=== PATIENT | male | born 1930 | race Caucasian/White ===

== ENCOUNTER → 2016-12-26 | Outpatient (REF) | payer MEDICARE ==
[~2016-12-26] MED LIST: CENT1TAB PO; COUM2.5T11 PO; FLOM5CAP PO; HYDR25TAB PO; NORV5TAB PO; PROS5TAB PO; TYLE325T5 PO; VOLT1GEL24 TD; ZANTTAB9 PO
[2016-12-26 12:05] LABS: ALBUMIN 3.7 GM/DL (3.2-5.2); ALBUMIN/GLOBULIN RATIO 1.12 (1.00-1.93); BILIRUBIN,TOTAL 0.7 MG/DL (0.2-1.0); CALCIUM LEVEL 9.6 MG/DL (8.8-10.2); CREATININE FOR GFR 1.68 MG/DL (0.70-1.30); GLOMERULAR FILTRATION RATE 41.6 (>35); POTASSIUM SERUM 3.9 MEQ/L (3.5-5.1)
[2016-12-26 12:07] LABS: MEAN CORPUSCULAR HEMOGLOBIN 32.7 pg (27.0-33.0); MEAN CORPUSCULAR HGB CONC 34.2 g/dl (32.0-36.5); MEAN CORPUSCULAR VOLUME 95.8 fl (80.0-96.0); RED CELL DISTRIBUTION WIDTH 12.7 % (11.5-14.5); WHITE BLOOD COUNT 7.1 K/mm3 (4.0-10.0)
== END ==
LOC: M SFHCCLAY 07:01
PROVIDERS: ATTEND Family Medicine
DX: I11.9 Hypertensive heart disease without heart failure (principal); E78.2 Mixed hyperlipidemia; D63.8 Anemia in other chronic diseases classified elsewhere

== ENCOUNTER → 2017-05-02 | Outpatient (REF) | payer MEDICARE ==
[~2017-05-02] MED LIST changes: -COUM2.5T11 PO; +COUM2.5T17 PO; +CYCL10TA PO; +GABA-282 PO; +TRAM50TA2 PO; +VITMTA PO; +VOLT1GEL15 TD; -VOLT1GEL24 TD
[2017-05-02 17:49] LABS: ALBUMIN/GLOBULIN RATIO 1.21 (1.00-1.93); ALKALINE PHOSPHATASE 79 U/L (45-117); ALT/SGPT 25 U/L (12-78); ANION GAP 10 MEQ/L (8-16); AST/SGOT 27 U/L (15-37); BILIRUBIN,TOTAL 0.7 MG/DL (0.2-1.0); BLOOD UREA NITROGEN 28 MG/DL (7-18); CALCIUM LEVEL 10.1 MG/DL (8.8-10.2); CARBON DIOXIDE LEVEL 30 MEQ/L (21-32); CHLORIDE LEVEL 106 MEQ/L (98-107); CREATININE FOR GFR 1.67 MG/DL (0.70-1.30); GLOMERULAR FILTRATION RATE 41.9 (>35); GLUCOSE, FASTING 84 MG/DL (83-110); POTASSIUM SERUM 3.8 MEQ/L (3.5-5.1); SODIUM LEVEL 146 MEQ/L (136-145); TOTAL PROTEIN 7.3 GM/DL (6.4-8.2)
[2017-05-02 17:57] LABS: MEAN CORPUSCULAR HEMOGLOBIN 33.4 pg (27.0-33.0); MEAN CORPUSCULAR HGB CONC 33.8 g/dl (32.0-36.5); MEAN CORPUSCULAR VOLUME 98.7 fl (80.0-96.0); RED CELL DISTRIBUTION WIDTH 12.5 % (11.5-14.5); WHITE BLOOD COUNT 7.7 K/mm3 (4.0-10.0)
[2017-05-03 11:36] LABS: ALBUMIN 4.06 GM/DL (3.29-5.55); ALBUMIN % 55.6 % (55.8-66.1); GAMMA GLOBULIN % 14.2 % (11.1-18.8)
[2017-05-05 00:07] LABS: FREE KAPPA LIGHT CHAINS SERUM 39.8 mg/L (3.3-19.4); FREE LAMBDA LIGHT CHAINS SERUM 27.4 mg/L (5.7-26.3); KAPPA/LAMBDA RATIO SERUM 1.45 (0.26-1.65)
== END ==
LOC: M SFHCADAM 15:07
PROVIDERS: ATTEND Family Medicine
DX: M54.41 Lumbago with sciatica, right side (principal); M51.37 Other intervertebral disc degeneration, lumbosacral region

== ENCOUNTER 2017-05-04 17:17 | Inpatient (IN) | payer MEDICARE ==
[~2017-05-04] VITALS: Ht 172.7 cm; Wt 78.3 kg
[~2017-05-04 17:17] MED LIST changes: -CYCL10TA PO; -GABA-282 PO; -TRAM50TA2 PO; -VITMTA PO
[2017-05-04] MEDS ORDERED: TRAM50TA2 PO (17:39)
[2017-05-04] MEDS ORDERED: CYCL10TA PO (17:40)
[2017-05-04] MEDS ORDERED: traMADol 50 MG TAB PO ONE (20:00)
--- NOTE | 2017-05-04 20:10 | REPUSA ---
HISTORY: BACK PAIN, PARASTHESIAS. TECHNIQUE: Multisequence, multiplanar MRI imaging of lumbosacral spine without contrast. FINDINGS: There is no evidence of fracture, destructive bony lesion, or marrow abnormality seen in t he lumbosacral spine. Conus medullaris is normal and terminates at L1. There is a large cyst in the sacral spinal canal at the S2 level measuring 1.2 x 0.8 cm. The L1/L2 level demonstrates degenerative spondylosis with 2 mm broad-based posterior disc bulging, a nd bilateral facet joint osteoarthritis, without significant canal stenosis or nerve root compression seen. The L2/L3 level demonstrates degenerative spondylosis with 4 mm posterior lateral disc protrusion/spu rring extending to the right side with bilateral facet joint osteoarthritis, resulting in right rut inal stenosis and possible impingement upon the exiting right L2 nerve root, but without significant canal stenosis at this level. This is best seen on the axial sequence, series 6, image 7, and on the stenosis sequence series 4, images 4-5. The L3/L4 level demonstrates degenerative spondylosis with 2 mm broad-based posterior disc bulging/sp urring and bilateral facet joint osteoarthritis and hypertrophy of ligamentum flavum. The resulting in 0.6 cm canal stenosis but without definite impingement seen upon the exiting L3 nerve roots. The L4/L5 level demonstrates 2 mm degenerative spondylolisthesis of L4 anteriorly upon L5 with degene rative spondylosis and disc space narrowing and desiccation of the disc with 2 mm broad-based posteri or disc bulging/spurring with bilateral facet joint osteoarthritis without canal stenosis resulting i n bilateral foraminal stenosis, greater on the left side with possible impingement upon the exiting l eft L4 nerve root, best seen on the axial sequence, series 6, image 17, and on the stenosis sequence series 4, image 10. The L5/S1 level demonstrates degenerative spondylosis with a large 0.8 cm posterior lateral disc her niation to the right side impinging upon the right anterolateral thecal sac at this level, and with b ilateral foraminal stenosis resulting in bilateral foraminal stenosis, but without impingement upon t he exiting right and left L5 nerve roots, but there may be impingement upon the intracanal right S1 n erve root, best seen on the axial sequence, series 6, images 22-25. IMPRESSION: 1. Multilevel degenerative disc disease and facet joint osteoarthritis throughout the e ntire lumbar sacral spine, with large 8 mm disc herniation at L5/S1 extending to the right anterolate ral thecal sac, compressing the thecal sac and resulting in bilateral foraminal stenosis, with possib le impingement upon the intracanal right S1 nerve root. 2. Degenerative spondylolisthesis at L4/L5 with possible impingement upon the exiting left L4 nerve root. 3. The degenerative changes result in 0.6 cm canal stenosis at L3/L4. 4. The degenerative changes result in possible impingement upon the exiting right L2 nerve root. 5. The degenerative changes at L1/L2 do not result in significant canal stenosis or nerve root compr ession. 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 Clinical correlation is suggested in order to localize and determine neurological significance.
[2017-05-04] MEDS ORDERED: ONDANSETRON 4MG/2ML VIAL (J2405) IV PRN (21:30)
[2017-05-04] MEDS ORDERED: MORPHINE 2 MG/ML 1ML SYRINGE IV PRN (21:30)
[2017-05-04] MEDS ORDERED: PERCOCET 5MG/325MG TAB PO PRN ×2 (21:30)
[2017-05-04] MEDS ORDERED: methylPREDNISolone INJ 125 MG/2 ML VIAL (J2930) IV STA (21:47)
[2017-05-04] MEDS ORDERED: VITMTA PO (21:47)
[2017-05-04] MEDS ORDERED: HYDR25TAB PO (21:48)
--- NOTE | 2017-05-04 23:00 | HPE ---
DATE OF ADMISSION: 05/04/2017 PRIMARY CARE PROVIDER: Dr. Gonsales ORTHOPEDIST: Dr. Woody CODE STATUS: Full code. CHIEF COMPLAINT: Worsening low back pain. HISTORY OF PRESENT ILLNESS: 86-year-old gentleman with worsening low back pain for approximately a month to a month and half which has now became more problematic with him being bedridden more less for the past week. He has been to see his primary care provider. He has been to see Dr. Woody and was seen through the area emergency room a few days ago and had been scheduled for an MRI today by Dr. Gonsales. He does continue to have worsening back pain as stated above, difficulty with standing, walking and sitting due to excruciating back pain with radiation down the right leg to behind the knee and calf region. He states his bowel movements have been regular. He denies any difficulty with voiding. No bladder or bowel incontinence. He denies any saddle paresthesias. Mr. Mendoza states that prior to a month ago he was in his usual state of health. He had been able to do most of his yard work. He does have a garden. He had not been having any problems other than some increasing lower back stiffness that he had noted that has become progressively worse. He denies any trauma or recent falls. No fevers, chills. He states he has also been going to physical therapy, which did not seem to help up until about a week ago and then he was unable to tolerate standing or walking as indicated above. He has also currently been placed on Flexeril and Ultram, which he states has not been helping much with pain for the last few days. PAST MEDICAL HISTORY: 1. Benign prostatic hypertrophy (BPH). 2. Hypertension. 3. Gastroesophageal reflux disease (GERD). 4. Low back pain. PAST SURGICAL HISTORY: 1. Gallbladder. 2. Inguinal hernia. 3. Right hip. 4. Cataract surgery. FAMILY HISTORY: Noncontributory. SOCIAL HISTORY: The patient is , lives at home with his . Denies tobacco use, quit smoking 40 years ago. Denies any alcohol use. No recent travel. No sick contacts. No IV drug use. ALLERGIES: TARYN inhibitors and atenolol. HOME MEDICATIONS: - finasteride 5 mg at bedtime . - Flomax 0.4 mg daily - Norvasc 5 mg daily - multivitamin 1 tablet daily - Zantac 75 mg daily - Hydrochlorothiazide 25 mg daily - Tylenol 325 mg every 6 hours as needed - tramadol 50 mg every 6 hours as needed - Flexeril 10 mg three times a day p.r.n. muscle spasm REVIEW OF SYSTEMS: Constitutionally denies fevers, chills or rigors, decreased appetite. HEENT: Denies headache, lightheaded dizziness, blurry vision, double vision or tinnitus. No difficulty with speech or swallow. Pulmonary: Denies productive sputum cough or hemoptysis. Cardiovascular: No chest pain. He denies paroxysmal nocturnal dyspnea (PND), orthopnea. No lower extremity edema. GI: No nausea, vomiting, diarrhea. No hematochezia. No melena. : No dysuria, frequency or hematuria. Musculoskeletal: As indicated above worsening back pain with radiation down his right leg and lower extremity weakness, difficulty with sitting and standing and feels his legs are weak when he walks. He denies any saddle paresthesias. No bladder or bowel incontinence. No signs or complaints consistent with cauda equina. Neurologic: No paresthesias or paralysis. No loss of consciousness. No history of migraines. Endocrine: Negative for diabetes. Negative for thyroid disorder. Lymphatics: No lumps, bumps, swelling of the neck, axilla or groin. No axillary or groin lumps, bumps or swelling. Hematology: Negative for bleeding or bruising disorder. No history of venous thromboembolism. Oncology: No history of cancer. Psychiatric: No history of depression, denies suicidal ideation, audio or visual hallucination. REVIEW OF SYSTEMS: 10-point review of systems complete. Pertinent positives are listed. PHYSICAL EXAMINATION: Temperature is 97.9, pulse 75, respiratory rate 18, BP 148/62, SPO2 is 98% on room air. General: The patient appears to be in no acute distress. Is alert and oriented. HEENT: Unremarkable. Lungs: Clear. Heart: Regular rate and rhythm. Abdomen: Soft. Extremities: He does have palpable pulses distally, does have good sensation in the lower extremities. Straight leg raise positive at approximately 30 degrees on the right with radiation of pain to the anterior thigh and posterior knee. Neurologic: Otherwise cranial nerves II-XII are grossly intact and he does not demonstrate any significant motor or sensory deficits other than some weakness related to back pain with radiation to the right leg when he tries to lift his leg off the bed. LABS: Recent lab work done on 05/02/2017: White count 7.7, hemoglobin 12.2 and platelets 306,000. Sodium 146, potassium 3.8, chloride 106, bicarb 30, anion gap 10, BUN 28, creatinine 1.67, glucose 84. I did see that there was an SPEP done with results relatively unremarkable other than some beta-2 fraction suggesting acute inflammatory issues. Serum and urine immunotyping however was recommended. I will defer this to his primary care team. His MRI of the LS spine done this evening: Multilevel degenerative disc disease with facet joint osteoarthritis throughout the entire lumbar and sacral spine. He does have a large 8-mm disc herniation of L5-S1 extending to the right anterior lateral thecal sac with compression of the thecal sac resulting in bilateral foraminal stenosis with possible impingement upon the intracanal right SI nerve root. He does have spondylolisthesis noted of L4-L5, possible impingement on the exiting of the left L4 nerve root. Canal stenosis noted at the levels of L3-L4. Degenerative changes, possible impingement on the exiting of the right L2 nerve roots. Degenerative changes L1-L2. No significant canal stenosis. No nerve root compression. 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 IMPRESSION: Mr. Mendoza is a pleasant 86-year-old gentleman who unfortunately does have a significant disc herniation of L5-S1, more prominent on the right side with right SI impingement. He does have intractable back pain, unable to ambulate and will need to admit him for better pain control. IMPRESSION: 1. Significant disc herniation at the L5-S1 region with multiple level degenerative disc changes and spondylolisthesis of L4-L5. 2. Acute on chronic back pain. 3. Hypertension. 4. BPH. 5. GERD. PLAN: The patient will be admitted to med-surg per Dr. Gonsaels's family medicine service. Their service will pick this patient up in the morning. I did take the liberty to discuss the case with Dr. Emmanuel, who the patient did request see him while he is in the hospital. Dr. Emmanuel will see him tomorrow morning. In the meantime we did start him with pain control with by mouth Percocet, 1 to 2 tablets every 4 hours as needed, IV morphine for breakthrough pain, gabapentin 100 mg three times a day, Solu-Medrol 125 mg times one now. Continue with his home medications. Physical therapy has been ordered as well as occupational therapy and deep venous thrombosis (DVT) prophylaxis with thromboembolism deterrents (TEDs) and Sequential compression devices (SCDs) should the patient need to go to surgery for this. From a cardiac standpoint, the patient does appear to be doing well. Does not have any significant cardiac issues. Apparently, he prior to all of his back issues had been fairly active at home, able to achieve greater than 4 Metabolic Equivalent of Task (MET)S. Will go ahead and add on a 12-lead EKG in case the patient does need to get his surgery during this hospital stay as well as a portable chest x-ray. Otherwise he does appear to be relatively medically optimized. DVT prophylaxis with LUKAS and SCDs. DISPOSITION: Anticipate the patient will be here greater than two midnights.
[2017-05-04 23:12] VITALS: BP 147/65
--- NOTE | 2017-05-04 23:36 | ECGEPIP ---
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
[2017-05-05] MEDS: ACETAMINOPHEN TAB 650MG DOSE (2X325MG) PO PRN ×2 (02:16→10:03)
[2017-05-05 06:00] VITALS: BP 120/66
[2017-05-05 06:19] LABS: MEAN CORPUSCULAR HGB CONC 34.3 g/dl (32.0-36.5); MEAN CORPUSCULAR VOLUME 96.2 fl (80.0-96.0); RED CELL DISTRIBUTION WIDTH 12.6 % (11.5-14.5); WHITE BLOOD COUNT 4.7 K/mm3 (4.0-10.0)
[2017-05-05 06:38] LABS: CALCIUM LEVEL 9.1 MG/DL (8.8-10.2); CREATININE FOR GFR 1.74 MG/DL (0.70-1.30); POTASSIUM SERUM 3.8 MEQ/L (3.5-5.1)
--- NOTE | 2017-05-05 09:49 | REP ---
AP PORTABLE CHEST: 05/04/2017 COMPARISON: Chest x-ray 07/09/2014. CLINICAL HISTORY: Back pain. FINDINGS: There is linear atelectatic or fibrotic change in the periphery of the left and right mid lung zone. There is no effusion or acute infiltrate. Heart size borderline, allowing for degree of inflation and portable technique. There is no pulmonary edema but some mild venous hypertension is suggested. The aorta is calcified at the arch but without aneurysm. Airway intact. Bony thorax shows no acute compression deformity. IMPRESSION: 1. Basilar linear fibrotic change without definite consolidation, effusion or parenchymal mass. 2. Borderline heart size without pulmonary edema. The aorta is tortuous and calcified but without aneurysm and unchanged from previous study. Signed by Vivek Rankin MD 05/05/2017 10:15 P
[2017-05-05] MEDS: HEPARIN SOD (PORCINE) 5000 UNITS/ML VIAL SQ SCH ×3 (10:01→21:41)
[2017-05-05] MEDS: DOCUSATE SODIUM 100 MG CAP PO SCH ×2 (10:02→21:41)
[2017-05-05] MEDS: GABAPENTIN 100 MG CAP PO SCH ×3 (10:02→21:41)
--- NOTE | 2017-05-05 11:30 | IPNPDOC ---
Subjective Date Seen The patient was seen on 05/05/17. Subjective Chief Complaint/HPI The patient is a 86-year-old male admitted with a reason for visit of Intractable Back Pain. Events since last encounter Pt's son and at bedside. They are anxious about the decision to proceed with the Surgery that NS has recommended to alleviate the pt's pain. He also isn't take much for pain medication. Has had a reaction to morphine in the past with N/V and therefore doesn't want to take that. He took one dose of Tramadol prescribed by Dr Gonsales yesterday, and would be willing to take that. General: Denies: Fatigue Constitutional: Denies: Chills, Fever ENT: Denies: Head Aches Pulmonary: Denies: Dyspnea, Cough Cardiovascular: Denies: Chest Pain, Palpitations Gastrointestinal: Denies: Nausea, Vomiting, Diarrhea Neurological: Reports: Weakness Psych: Reports: Mood Normal Objective Physical Examination General Exam: Positive: Alert, No Acute Distress Chest Exam: Positive: Clear to auscultation, Normal air movement Heart Exam: Positive: Rate Normal, Normal S1, Normal S2 Abdomen Exam: Positive: Normal bowel sounds, Soft, Negative: Tenderness Extremity Exam: Negative: Edema Psych Exam: Positive: Mental status NL Assessment /Plan Problems (1) Lumbar disc herniation with radiculopathy Status: Acute Response to Treatment: Stable Discussed With: Patient, Family with Pt Consent Problem Specific Plan: Consult Specialist, Monitor Clinically Problem Text: NS consulted. They have offered surgical treatment option. Pt agreeable to start Tramadol 50 mg every 6 h as needed for pain. Await decision from pt and family. 05/04 MRI LS: IMPRESSION: 1. 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 2. Degenerative spondylolisthesis at L4/L5 with possible impingement upon the exiting left L4 nerve root. 3. The degenerative changes result in 0.6 cm canal stenosis at L3/L4. 4. The degenerative changes result in possible impingement upon the exiting right L2 nerve root. 5. The degenerative changes at L1/L2 do not result in significant canal stenosis or nerve root compression. 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 (2) Intractable back pain Status: Acute (3) Degenerative disc disease, lumbar Status: Acute (4) CKD (chronic kidney disease), stage III Status: Chronic Response to Treatment: Stable Problem Text: at baseline cr ~1.6 (5) Hypertension Status: Chronic Response to Treatment: Stable Problem Text: Stable off HD amlo 5/HCTZ 25 Plan/VTE VTE Prophylaxis Ordered?: Yes VS, I&O, 24H, Fishbone Vital Signs/I&O Vital Signs Date Time Temp Pulse Resp B/P (MAP) Pulse Ox O2 Delivery O2 Flow Rate FiO2 05/05/17 06:00 99.2 64 16 120/66 (84) 96 Room Air I&O- Last 24 Hours up to 6 AM 05/05/17 06:00 Intake Total 210 ml Output Total 700 ml Balance -490 ml Laboratory Data 24H LABS Laboratory Tests 2 05/05/17 05:46: Anion Gap 10, Glomerular Filtration Rate 40.0, Blood Urea Nitrogen 36H, Creatinine 1.74H, Sodium Level 141, Potassium Level 3.8, Chloride Level 103, Carbon Dioxide Level 28, Calcium Level 9.1 CBC/BMP Laboratory Tests 05/05/17 05:46 Red Blood Count 3.58 L, Mean Corpuscular Volume 96.2 H, Mean Corpuscular Hemoglobin 33.0, Mean Corpuscular Hemoglobin Concent 34.3, Red Cell Distribution Width 12.6, Calcium Level 9.1 NINOSKA GRAYSON PA-C May 05, 2017 11:30 ePte Guerrero M.D. May 05, 2017 16:27
--- NOTE | 2017-05-05 11:41 | REP ---
LUMBAR SPINE, EIGHT VIEWS: HISTORY: None provided. There is no acute fracture. The intervertebral discs are decreased in height consistent with disc degeneration. Osteophytes are present throughout the lumbar spine. There is narrowing of the L3-4 through L5-S1 facet joints with associated sclerosis. There are 7 mm of grade I spondylolisthesis of L4 on L5. This is unchanged with flexion and extension. IMPRESSION: Degenerative change as described above. Signed by Mynor Loya MD 05/05/2017 11:43 A
[2017-05-05] MEDS ORDERED: traMADol 50 MG TAB PO PRN (12:30)
[2017-05-05 14:00] VITALS: BP 139/67
[2017-05-05 21:25] VITALS: BP 145/70
--- NOTE | 2017-05-05 22:20 | CR.PDOC ---
General Date of Consultation: May 05, 2017 Reason for Consultation/CC The patient is a 86-year-old male admitted with a reason for visit of Intractable Back Pain. History of Present Illness NEUROSURGERY I was asked by Dr. York to see this patient in consult today, 05/05/17. HISTORY OF PRESENT ILLNESS: Mr. Mendoza is a pleasant 86 year old gentleman former smoker who was admitted for intractable low back pain. He is accompanied by his and his son, Stoney. He states he does have a history of low back pain however, it became significantly worse within the past week as he has been bedridden. Previously he would hobble around the house, then he began using a cane, and then Monday morning he was unable to walk due to the pain and weakness in his right leg. His low back pain is mainly worse on the right side and has been quickly worsening. The pain is intermittent and worsens with any type of movement or activity. He states while laying in bed currently he does not feel much pain. He describes the pain as dull and with certain movements he will feel a burning sensation travel down the back side of his right leg. Any type of movement will make his pain worse, but specifically standing and walking significantly increase his pain. Laying in bed in supine position helps to alleviate the pain. He has been to PT in the past and reports no improvement in his symptoms. Recently, he said he has been to [facility] and received xrays but then was sent home. He followed up with his PCP who had ordered lumbar MRI and placed a referral to ortho for further evaluation. His son, Stoney, states he and his family would prefer to follow up with ortho. He also reports numbness in his right leg/foot. ALLERGIES: Please see below. HOME MEDICATIONS: Please see below. PAST MEDICAL HISTORY: 1. HTN 2. BPH 3. Low back pain 4. GERD NEUROSURGICAL HISTORY: 1. None 1. R hip, 2013, by Dr. Woody. SOCIAL HISTORY: Marital status: . Household members: . His son, Stoney, lives next door and helps with his care. 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 States he has been active all his life. Has ran many half marathons and a 10 mile run was casual for him in his day. Tobacco use: former smoker, Quit 44 years ago. Smoked about 1 ppd x 20-25 yrs. PHYSICAL EXAMINATION: VITAL SIGNS: Please see below. GENERAL: He is lying comfortably, in NAD. Well nourished and developed. Polite, pleasant, and cooperative during exam. His family helps to provide some of his history, which appears to be reliable. GCS: 15/15. ALert and orientated x3. MUSCLE STRENGTH: is overall 4/5 with hip flexion/extension bilaterally, leg extension bilaterally, knee flexion bilaterally, and plantar and dorsiflexion bilaterally. Straight leg raise on the right is positive, negative on the left. DTR: BR 1 bilaterally, biceps 1 bilaterally, patellar is absent bilaterally, achilles is absent bilaterally. Ankle clonus negative bilaterally. Babinski is downgoing bilaterally. Barbosa's is negative bilaterally. SENSATION: decreased to sharp in right leg over lateral aspect, in patchy areas bilaterally, and in a stocking distribution bilaterally. No significant tenderness with palpation over the lumbar paraspinal muscles or the posterior iliac crest. Tenderness is elicited over the right SI joint. GAIT: assessment deferred. LABORATORY DATA: Please see below. IMAGIN. 05/04/17. MRI lumbar. 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 Degenerative spondylolisthesis at L4/L5 with possible impingement upon the exiting left L4 nerve root. The degenerative changes result in 0.6 cm canal stenosis at L3/L4. The degenerative changes result in possible impingement upon the exiting right L2 nerve root. The degenerative changes at L1/L2 do not result in significant canal stenosis or nerve root compression. 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 . 05/04/17. Xray lumbar. 7 mm of grade I spondylolisthesis of L4 on L5. This is unchanged with flexion and extension. ASSESSMENT: Significant lumbar central spinal canal stenosis worst at L5-S1 with radiculopathy. Neurogenic claudication. PLAN/RECOMMENDATIONS: Patient and his family tell me they have spoke with Dr. York and are aware of his surgical recommendations. They tell me they have no additional questions for Dr. York. They are requesting a second opinion by davin García. I will place this consult to expedite his care given the severity of his symptoms and radiological findings. Thank you for the consultation. Please let us know if there are any additional needs or questions from [facility]. Jessa Clark RPA-Jaime Vital Signs/I&O Vital Signs Date Time Temp Pulse Resp B/P (MAP) Pulse Ox O2 Delivery O2 Flow Rate FiO2 05/05/17 14:00 98.6 83 16 139/67 (91) 93 Room Air I&O- Last 24 Hours up to 6 AM 05/05/17 05:59 Intake Total 30 ml Output Total 500 ml Balance -470 ml Laboratory Data 24H Labs Laboratory Tests 2 05/05/17 05:46: Anion Gap 10, Glomerular Filtration Rate 40.0, Blood Urea Nitrogen 36H, Creatinine 1.74H, Sodium Level 141, Potassium Level 3.8, Chloride Level 103, Carbon Dioxide Level 28, Calcium Level 9.1 CBC/BMP Laboratory Tests 05/05/17 05:46 Red Blood Count 3.58 L, Mean Corpuscular Volume 96.2 H, Mean Corpuscular Hemoglobin 33.0, Mean Corpuscular Hemoglobin Concent 34.3, Red Cell Distribution Width 12.6, Calcium Level 9.1 Allergies Coded Allergies: TARYN Inhibitors (Unverified Adverse Reaction, Intermediate, COUGH, 01/01/13) Atenolol (Unverified Adverse Reaction, Mild, DECREASED HEART RATE, 01/01/13) Home Medications Scheduled Amlodipine Besylate (Norvasc) 5 Mg Tab, 5 MG PO DAILY, (Reported) Finasteride (Proscar) 5 Mg Tab, 5 MG PO QHS, (Reported) Hydrochlorothiazide (Hydrochlorothiazide) 25 Mg Tab, 25 MG PO DAILY, (Reported) Multivitamins *[facility] STOCKED* (Thera M Plus *[facility] STOCKED*) 1 Tab Tab, 1 TAB PO DAILY, (Reported) Ranitidine HCl (Zantac 75) 75 Mg Tab, 75 MG PO DAILY, (Reported) Tamsulosin Hydrochloride (Flomax) 0.4 Mg Cap, 0.4 MG PO QHS, (Reported) Scheduled PRN Acetaminophen (Tylenol) 325 Mg Tab, 325 MG PO Q4HP PRN for PAIN / FEVER, ( Reported) Cyclobenzaprine HCl (Cyclobenzaprine HCl) 10 Mg Tab, 10 MG PO TID PRN for MUSCLE SPASMS, (Reported) Tramadol HCl (Tramadol HCl) 50 Mg Tab, 50 MG PO QID PRN for PAIN, (Reported) LURDES CLARK PA-C May 05, 2017 21:37
[2017-05-06] MEDS ORDERED: CYCLOBENZAPRINE 10 MG TAB PO PRN (01:45)
[2017-05-06] MEDS: FINASTERIDE 5 MG TAB PO SCH ×2 (01:56→17:31)
[2017-05-06] MEDS: TAMSULOSIN 0.4 MG CAP PO SCH ×2 (01:56→17:31)
[2017-05-06] MEDS: HEPARIN SOD (PORCINE) 5000 UNITS/ML VIAL SQ SCH ×3 (05:56→21:13)
[2017-05-06 06:00] VITALS: BP 124/60
[2017-05-06 06:04] LABS: MEAN CORPUSCULAR HEMOGLOBIN 33.1 pg (27.0-33.0); MEAN CORPUSCULAR HGB CONC 34.6 g/dl (32.0-36.5); MEAN CORPUSCULAR VOLUME 95.7 fl (80.0-96.0); RED CELL DISTRIBUTION WIDTH 12.5 % (11.5-14.5); WHITE BLOOD COUNT 18.4 K/mm3 (4.0-10.0)
[2017-05-06 06:21] LABS: CALCIUM LEVEL 9.6 MG/DL (8.8-10.2); CREATININE FOR GFR 1.98 MG/DL (0.70-1.30); GLOMERULAR FILTRATION RATE 34.5 (>35); POTASSIUM SERUM 3.8 MEQ/L (3.5-5.1)
[2017-05-06] MEDS: DOCUSATE SODIUM 100 MG CAP PO SCH ×2 (08:33→21:13)
[2017-05-06] MEDS: hydroCHLOROthiazide 25 MG TAB PO SCH (08:33)
[2017-05-06] MEDS: GABAPENTIN 100 MG CAP PO SCH ×3 (08:33→21:13)
[2017-05-06] MEDS: amLODIPine 5 MG TAB PO SCH (08:34)
[2017-05-06] MEDS: MULTIVITAMINS/MINERALS THERAP 1 TAB PO SCH (08:34)
[2017-05-06 14:00] VITALS: BP 143/69
--- NOTE | 2017-05-06 16:28 | IPNPDOC ---
Subjective Date Seen The patient was seen on 05/06/17. Subjective Chief Complaint/HPI The patient is a 86-year-old male admitted with a reason for visit of Intractable Back Pain. Events since last encounter Patient states his back pain and right lower extremity shooting pain is better today. He states Dr. Emmanuel saw him yesterday and this morning and plans to do an epidural injection. General: Denies: Chills Constitutional: Denies: Chills, Fever ENT: Denies: Head Aches Skin: Denies: Rash Pulmonary: Denies: Dyspnea, Cough Cardiovascular: Denies: Chest Pain, Palpitations Gastrointestinal: Denies: Nausea, Vomiting, Abdominal Pain, Diarrhea Genitourinary: Denies: Retention Musculoskeletal: Reports: Back Pain Neurological: Denies: Weakness, Numbness Psych: Reports: Mood Normal Objective Physical Examination General Exam: Positive: Alert, No Acute Distress Chest Exam: Positive: Clear to auscultation, Normal air movement Heart Exam: Positive: Rate Normal, Normal S1, Normal S2 Abdomen Exam: Positive: Normal bowel sounds, Soft, Negative: Tenderness Extremity Exam: Negative: Edema Psych Exam: Positive: Mental status NL Other physical findings Low backup engineer to palpation; right straight leg raise positive, left straight leg raise negative Assessment /Plan Problems (1) Lumbar disc herniation with radiculopathy Status: Acute Response to Treatment: Stable Discussed With: Patient, Family with Pt Consent Problem Specific Plan: Consult Specialist, Monitor Clinically Problem Text: NS consulted and offered surgical treatment option, which patient declined. He states he was evaluated by Dr. Emmanuel who plans to do an epidural injection - there are no notes available from Dr. Emmanuel to confirm this. The patient's nurse thinks that this is planned for Monday. Pt agreeable to start Tramadol 50 mg every 6 h as needed for pain. 05/04 MRI LS: IMPRESSION: 1. 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 2. Degenerative spondylolisthesis at L4/L5 with possible impingement upon the exiting left L4 nerve root. 3. The degenerative changes result in 0.6 cm canal stenosis at L3/L4. 4. The degenerative changes result in possible impingement upon the exiting right L2 nerve root. 5. The degenerative changes at L1/L2 do not result in significant canal stenosis or nerve root compression. 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 (2) Intractable back pain Status: Acute (3) Degenerative disc disease, lumbar Status: Acute (4) CKD (chronic kidney disease), stage III Status: Chronic Response to Treatment: Stable Problem Text: at baseline cr ~1.6 (5) Hypertension Status: Chronic Response to Treatment: Stable Problem Text: Stable off HD amlo 5/HCTZ 25 Plan/VTE VTE Prophylaxis Ordered?: Yes VS, I&O, 24H, Fishbone Vital Signs/I&O Vital Signs Date Time Temp Pulse Resp B/P (MAP) Pulse Ox O2 Delivery O2 Flow Rate FiO2 05/06/17 14:00 97.9 54 18 143/69 (93) 96 Room Air I&O- Last 24 Hours up to 6 AM 05/06/17 05:59 Intake Total 1260 ml Output Total 440 ml Balance 820 ml Laboratory Data 24H LABS Laboratory Tests 2 05/06/17 05:47: Anion Gap 11, Glomerular Filtration Rate 34.5L, Blood Urea Nitrogen 58#H, Creatinine 1.98H, Sodium Level 144, Potassium Level 3.8, Chloride Level 102, Carbon Dioxide Level 31, Calcium Level 9.6 CBC/BMP Laboratory Tests 05/06/17 05:47 Red Blood Count 3.42 L, Mean Corpuscular Volume 95.7, Mean Corpuscular Hemoglobin 33.1 H, Mean Corpuscular Hemoglobin Concent 34.6, Red Cell Distribution Width 12.5, Calcium Level 9.6 ADILSON MCGOWAN MD May 06, 2017 16:25
[2017-05-06 21:30] VITALS: BP 138/64
[2017-05-07 05:15] VITALS: BP 137/72
[2017-05-07] MEDS: HEPARIN SOD (PORCINE) 5000 UNITS/ML VIAL SQ SCH ×3 (05:54→22:14)
[2017-05-07 06:14] LABS: MEAN CORPUSCULAR HEMOGLOBIN 32.6 pg (27.0-33.0); MEAN CORPUSCULAR HGB CONC 33.7 g/dl (32.0-36.5); MEAN CORPUSCULAR VOLUME 96.9 fl (80.0-96.0); RED CELL DISTRIBUTION WIDTH 12.5 % (11.5-14.5); WHITE BLOOD COUNT 8.9 K/mm3 (4.0-10.0)
[2017-05-07 06:31] LABS: CALCIUM LEVEL 9.7 MG/DL (8.8-10.2); CREATININE FOR GFR 1.68 MG/DL (0.70-1.30); GLOMERULAR FILTRATION RATE 41.6 (>35); POTASSIUM SERUM 3.1 MEQ/L (3.5-5.1)
[2017-05-07] MEDS: MULTIVITAMINS/MINERALS THERAP 1 TAB PO SCH (10:23)
[2017-05-07] MEDS: GABAPENTIN 100 MG CAP PO SCH ×2 (10:23→15:59)
[2017-05-07] MEDS: DOCUSATE SODIUM 100 MG CAP PO SCH ×2 (10:23→20:36)
[2017-05-07] MEDS: hydroCHLOROthiazide 25 MG TAB PO SCH (10:24)
[2017-05-07] MEDS: amLODIPine 5 MG TAB PO SCH (10:25)
[2017-05-07] MEDS: POTASSIUM CHLORIDE 10 MEQ SR TABLET PO SCH ×2 (12:14→20:37)
[2017-05-07 14:00] VITALS: BP 146/67
--- NOTE | 2017-05-07 16:39 | IPNPDOC ---
Subjective Date Seen The patient was seen on 05/07/17. Subjective Chief Complaint/HPI The patient is a 86-year-old male admitted with a reason for visit of Intractable Back Pain. Events since last encounter Patient states pain is much better - however he has mainly been lying in bed and has occasionally been walking upright and has not been sitting at all. He and his family are concerned about whether he will be able to tolerate the 30 [address] car ride home. Constitutional: Denies: Chills, Fever ENT: Denies: Head Aches Pulmonary: Denies: Dyspnea, Cough Cardiovascular: Denies: Chest Pain, Palpitations Gastrointestinal: Denies: Nausea, Vomiting, Abdominal Pain Musculoskeletal: Reports: Back Pain (mild, 2/10) Neurological: Denies: Weakness, Numbness Objective Physical Examination General Exam: Positive: Alert, No Acute Distress Chest Exam: Positive: Clear to auscultation, Normal air movement Heart Exam: Positive: Rate Normal, Normal S1, Normal S2 Abdomen Exam: Positive: Normal bowel sounds, Soft, Negative: Tenderness Extremity Exam: Negative: Edema Psych Exam: Positive: Mental status NL Assessment /Plan Problems (1) Lumbar disc herniation with radiculopathy Status: Acute Response to Treatment: Stable Discussed With: Patient, Family with Pt Consent Problem Specific Plan: Consult Specialist, Monitor Clinically Problem Text: I discussed the case with Dr. Emmanuel this morning; he recommends an epidural injection, which patient also wants. Dr. Emmanuel recommended either Pain consult tomorrow to schedule epidural injection while inpatient, or if patient is able to tolerate discharge home, then discharge home and follow-up with him in the office. I encouraged patient to try to sit today to see if this exacerbates his pain. NS consulted and offered surgical treatment option, which patient declined. Pain managed with Tramadol 50 mg every 6 h as needed for pain. Gabapentin increased on 05/07 from 100 mg TID to 300 mg TID. 05/04 MRI LS: IMPRESSION: 1. 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 2. Degenerative spondylolisthesis at L4/L5 with possible impingement upon the exiting left L4 nerve root. 3. The degenerative changes result in 0.6 cm canal stenosis at L3/L4. 4. The degenerative changes result in possible impingement upon the exiting right L2 nerve root. 5. The degenerative changes at L1/L2 do not result in significant canal stenosis or nerve root compression. 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 (2) Intractable back pain Status: Acute (3) Degenerative disc disease, lumbar Status: Acute (4) CKD (chronic kidney disease), stage III Status: Chronic Response to Treatment: Stable Problem Text: at baseline cr ~1.6 (5) Hypertension Status: Chronic Response to Treatment: Stable Problem Text: Stable off HD amlo 5/HCTZ 25 Plan/VTE VTE Prophylaxis Ordered?: Yes VS, I&O, 24H, Fishbone Vital Signs/I&O Vital Signs Date Time Temp Pulse Resp B/P (MAP) Pulse Ox O2 Delivery O2 Flow Rate FiO2 05/07/17 14:00 99.5 58 16 146/67 (93) 96 Room Air I&O- Last 24 Hours up to 6 AM 05/07/17 06:00 Intake Total 960 ml Output Total 2200 ml Balance -1240 ml Laboratory Data 24H LABS Laboratory Tests 2 05/07/17 05:40: Anion Gap 7L, Glomerular Filtration Rate 41.6, Blood Urea Nitrogen 52H, Creatinine 1.68H, Sodium Level 144, Potassium Level 3.1L, Chloride Level 104, Carbon Dioxide Level 33H, Calcium Level 9.7 CBC/BMP Laboratory Tests 05/07/17 05:40 Calcium Level 9.7 05/07/17 05:41 Red Blood Count 3.29 L, Mean Corpuscular Volume 96.9 H, Mean Corpuscular Hemoglobin 32.6, Mean Corpuscular Hemoglobin Concent 33.7, Red Cell Distribution Width 12.5 ADILSON MCGOWAN MD May 07, 2017 16:39
[2017-05-07] MEDS: FINASTERIDE 5 MG TAB PO SCH (18:12)
[2017-05-07] MEDS: TAMSULOSIN 0.4 MG CAP PO SCH (18:12)
[2017-05-07] MEDS: GABAPENTIN 300 MG CAP PO SCH (20:36)
[2017-05-07 21:45] VITALS: BP 144/68
--- NOTE | 2017-05-07 23:32 | CR ---
DATE OF CONSULTATION: 05/05/2017 REFERRING PHYSICIAN: I had been asked to see the patient by the hospitalist service who requested the consultation. REASON FOR CONSULTATION: I was asked to evaluate intractable back discomfort radiating down the right lower extremity. HISTORY: The patient indicates that he had been having two months of pain. Prior to two months ago he had some back discomfort but not as severe. He had a previous hip replacement on the contralateral side. He has been seen by Dr. Woody of orthopedics in the past, and Dr. Woody had recommended the patient obtain an MRI of his back. His back got to the point where he trouble getting out of bed and when he was about to be brought to the MRI, they were unable to mobilize him, so he was brought in to the emergency room. The pain is better when he is lying down and is much worse when he is standing. When I had seen the patient, he had already received medications per the hospitalist, gabapentin and a steroid. At the time I saw the patient, he noted significant improvement in his symptoms at that point. Describes the pain as burning down the back of the leg and radiating towards the heel of the right foot. The patient has also been seen in consultation by the neurosurgical service at [facility], and the neurosurgical service had recommended what the patient's family described as a long surgical procedure including fusion. Both the patient's daughter and son-in-law in fact had surgery with me in the past, and the family also requested the orthopedic opinion. Family expressed to me that they were very apprehensive about the patient's ability to tolerate long spinal procedure. The patient has not yet had epidural injections. IMAGING: I reviewed imaging that included plain films such as flexion-extension views, as well as the MRI. In my opinion, the flexion/extension views reveal extensive degenerative changes in the lumbar spine while lordosis is preserved. He does have a proximally 7 mm listhesis of 4 on 5. It is not particularly dynamic between flexion and extension. On the MRI, this is also appreciated and there is stenosis at L4-5, L3-4 and L5-S1. The L5-S1 stenosis is secondary to combination of facet arthropathy, ligamentum flavum hypertrophy, as well as a disk bulge producing severe lateral recess stenosis on the right at L5-S1. At L4-5, there is also, in my opinion, right somewhat greater than left lateral recess stenosis though not nearly as severe as at L5-S1. At L3-4, there is significant lumbar spinal stenosis, moderate degree. There is facet arthropathy at multiple lumbar levels. MEDICAL HISTORY: 1. Hypertension. 2. Benign prostatic hypertrophy. 3. Chronic low back pain. 4. Reflux disease. SURGICAL HISTORY: Includes left hip replacement. LABORATORY DATA: Hematocrit 35, creatinine 1.74, blood sugar 190. ALLERGIES: ANGIOTENSION-CONVERTING ENZYME (TARYN) INHIBITORS and ATENOLOL. MEDICATIONS: Include Norvasc, Proscar, hydrochlorothiazide, ranitidine, Flomax, Tylenol, Flexeril, tramadol. CLINICAL EXAMINATION: He is alert and cooperative. He appears to be his stated age of 86. He is not in distress. He was actually able to sit up at the bedside. He was not short of breath. He is able to talk and conversive in complete sentences. The abdomen is soft, nontender. Back is not particularly tender with palpation. The right lower extremity seems to be motor intact. He does appreciate light touch. He is able to sit at the bedside. Trying to sit up seems to produce the pain going down the back of right leg. Comfortable when he is lying down. No peripheral edema today. Relatively healthy skin face, upper and lower extremities without open wounds. IMPRESSION: 1. Right lower extremity radiculopathy. 2. Lumbar spinal stenosis. 3. Non-dynamic spondylolisthesis 4-5. 4. Herniated disk at 5-1 to the right. RECOMMENDATIONS: I had a magali discussion with the family about the pathology involved and different interventions including but not limited to epidural injections, medications such as gabapentin, as well as surgical interventions. The patient, as well as his daughter, expressed apprehension about surgical intervention. They are worried about medical comorbidities associated with that intervention. He is worried specifically that the surgery "might kill him." I think that it is reasonable for the patient to consider nonoperative care. Nonoperative measures may or may not be effective. Specifically, epidurals may gave no relief, may be temporary relief which could be measured in weeks, but if he is korina, could be measured in longer time frames. In terms of surgery, the patient and whichever physician operates, would likely be considering risks, benefits of larger procedures such as decompression and fusion which could address his spondylolisthesis at 4-5 versus surgery such as a less invasive decompression of 5-1, which may improve his right lower extremity radicular symptoms. The patient wants to think about his options and he is advocating at the time I saw him a trial of the epidural injections and medications, especially given his improvement with the oral steroids provided by Dr. Pepper and the gabapentin. I talked with the patient about being seen and evaluated by pain management on Monday for consideration of the epidurals. That is how they want to proceed at this time. For further details, please refer to medical record.
--- NOTE | 2017-05-07 23:37 | IPN ---
DATE OF VISIT: 05/06/2017 BRIEF ROUNDS VISIT: I would agree that the patient had continued to improve compared to the previous day, but was still having some discomfort radiating down the right lower extremity. The patient and his reaffirmed that they intend to pursue with epidural injections prior to surgical intervention. We spent approximately 15 minutes together [id number] time with the patient today.
[2017-05-08 05:35] VITALS: BP 139/68
[2017-05-08] MEDS: HEPARIN SOD (PORCINE) 5000 UNITS/ML VIAL SQ SCH ×3 (05:41→21:50)
[2017-05-08 05:58] LABS: MEAN CORPUSCULAR HEMOGLOBIN 33.1 pg (27.0-33.0); MEAN CORPUSCULAR HGB CONC 34.3 g/dl (32.0-36.5); MEAN CORPUSCULAR VOLUME 96.7 fl (80.0-96.0); WHITE BLOOD COUNT 6.8 K/mm3 (4.0-10.0)
[2017-05-08 06:17] LABS: CALCIUM LEVEL 10.2 MG/DL (8.8-10.2); CREATININE FOR GFR 1.61 MG/DL (0.70-1.30); GLOMERULAR FILTRATION RATE 43.7 (>35); POTASSIUM SERUM 3.9 MEQ/L (3.5-5.1)
[2017-05-08] MEDS: DOCUSATE SODIUM 100 MG CAP PO SCH ×2 (10:22→21:48)
[2017-05-08] MEDS: GABAPENTIN 300 MG CAP PO SCH ×3 (10:23→21:48)
[2017-05-08] MEDS: hydroCHLOROthiazide 25 MG TAB PO SCH (10:24)
[2017-05-08] MEDS: amLODIPine 5 MG TAB PO SCH (10:26)
[2017-05-08] MEDS: POTASSIUM CHLORIDE 10 MEQ SR TABLET PO SCH ×2 (10:26→21:49)
[2017-05-08] MEDS: MULTIVITAMINS/MINERALS THERAP 1 TAB PO SCH (10:27)
--- NOTE | 2017-05-08 11:51 | IPNPDOC ---
Subjective Date Seen The patient was seen on 05/08/17. Subjective Chief Complaint/HPI The patient is a 86-year-old male admitted with a reason for visit of Intractable Back Pain. Events since last encounter Pt states he is better but still having back pain especially when he is sitting for a period of time. Denies CP, SOB, Abd pain. Constitutional: Denies: Chills, Fever Pulmonary: Denies: Dyspnea Cardiovascular: Denies: Chest Pain Gastrointestinal: Denies: Abdominal Pain Objective Physical Examination General Exam: Positive: Alert, No Acute Distress Chest Exam: Positive: Clear to auscultation, Normal air movement Heart Exam: Positive: Rate Normal, Normal S1, Normal S2 Abdomen Exam: Positive: Normal bowel sounds, Soft, Negative: Tenderness Extremity Exam: Negative: Edema Psych Exam: Positive: Mental status NL Assessment /Plan Problems (1) Lumbar disc herniation with radiculopathy Status: Acute Response to Treatment: Stable Discussed With: Patient, Family with Pt Consent Problem Specific Plan: Consult Specialist, Monitor Clinically Problem Text: 05/08 - Pt would like to try the epidurals and he requests inpt pain management consultation vs going home and following up for epidurals as an outpt. I discussed the case with Dr. Emmanuel this morning; he recommends an epidural injection, which patient also wants. Dr. Emmanuel recommended either Pain consult tomorrow to schedule epidural injection while inpatient, or if patient is able to tolerate discharge home, then discharge home and follow-up with him in the office. I encouraged patient to try to sit today to see if this exacerbates his pain. NS consulted and offered surgical treatment option, which patient declined. Pain managed with Tramadol 50 mg every 6 h as needed for pain. Gabapentin increased on 05/07 from 100 mg TID to 300 mg TID. 05/04 MRI LS: IMPRESSION: 1. 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 2. Degenerative spondylolisthesis at L4/L5 with possible impingement upon the exiting left L4 nerve root. 3. The degenerative changes result in 0.6 cm canal stenosis at L3/L4. 4. The degenerative changes result in possible impingement upon the exiting right L2 nerve root. 5. The degenerative changes at L1/L2 do not result in significant canal stenosis or nerve root compression. 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 (2) Intractable back pain Status: Acute Problem Text: See above. (3) Degenerative disc disease, lumbar Status: Acute (4) CKD (chronic kidney disease), stage III Status: Chronic Response to Treatment: Stable Problem Text: at baseline cr ~1.6 (5) Hypertension Status: Chronic Response to Treatment: Stable Problem Text: Stable off HD amlo 5/HCTZ 25 Plan/VTE VTE Prophylaxis Ordered?: Yes VS, I&O, 24H, Fishbone Vital Signs/I&O Vital Signs Date Time Temp Pulse Resp B/P (MAP) Pulse Ox O2 Delivery O2 Flow Rate FiO2 05/08/17 10:26 66 144/66 05/08/17 05:35 98.1 16 97 Room Air I&O- Last 24 Hours up to 6 AM 05/08/17 06:00 Intake Total 920 ml Output Total 1900 ml Balance -980 ml Laboratory Data 24H LABS Laboratory Tests 2 05/08/17 05:26: Anion Gap 7L, Glomerular Filtration Rate 43.7, Blood Urea Nitrogen 38H, Creatinine 1.61H, Sodium Level 147H, Potassium Level 3.9#, Chloride Level 107, Carbon Dioxide Level 33H, Calcium Level 10.2 CBC/BMP Laboratory Tests 05/08/17 05:26 Red Blood Count 3.20 L, Mean Corpuscular Volume 96.7 H, Mean Corpuscular Hemoglobin 33.1 H, Mean Corpuscular Hemoglobin Concent 34.3, Red Cell Distribution Width 13.0, Calcium Level 10.2 Juan Luis Layton RPA-C May 08, 2017 11:51
[2017-05-08 14:00] VITALS: BP 131/62
[2017-05-08] MEDS: TAMSULOSIN 0.4 MG CAP PO SCH (18:32)
[2017-05-08] MEDS: FINASTERIDE 5 MG TAB PO SCH (18:32)
--- NOTE | 2017-05-08 19:16 | CR.PDOC ---
[facility] Pain Clinic Consultation General Date of Consultation: 05/08/17 Consultation Report For: Juan Luis Layton Dajuan RPA-C Chief Complaint The patient is a 86-year-old male admitted with a reason for visit of Intractable Back Pain. History of Present Illness Sharif Ann is a 86-year-old gentleman who was seen today for further evaluation and possible treatment of new onset severe low back and right leg pain. Reports that he has been very active over the last several months including putting a new roof on his house and siding. He began having new pain in his low back with radiation to the right leg in March 2017. He was seen by Dr. Woody at [facility] orthopedics who did recommend physical therapy. He did attend this for 5-6 weeks, but unfortunately had a marked exacerbation of pain in the low back and right leg early April. Pain got so bad within the last week that he was unable to rise from a sitting position or sit in the car. He also began noting numbness into the right leg and particularly across the bottom of the right foot. States he has had no pain in the left leg. He was admitted on 05/05/2017. He was started on IV Solu-Medrol as well as gabapentin. He was given muscle relaxers. He was to be seen by his usual orthopedic group on. He was seen by Dr. Vera from neurosurgery before Dr. Emmanuel was able to see him and the decision was being paid as to whether or not he was to go to surgery. Following his discussion with Dr. Emmanuel decision was made to try more conservative therapy first including injection treatments. States that he is more comfortable today. Pain is located deep within the right buttock. He does continue to have numbness across the sole of the right foot. He has been able to get out of bed and walk with the assistance of a walker. Rates his pain level today as a 4-5/10 if he is sitting still and can spike to a 6-8/10 with movement. Denies any loss of bowel or bladder control. Home Medications Scheduled Amlodipine Besylate (Norvasc) 5 Mg Tab, 5 MG PO DAILY, (Reported) Finasteride (Proscar) 5 Mg Tab, 5 MG PO QHS, (Reported) Hydrochlorothiazide (Hydrochlorothiazide) 25 Mg Tab, 25 MG PO DAILY, (Reported) Multivitamins *[facility] STOCKED* (Thera M Plus *[facility] STOCKED*) 1 Tab Tab, 1 TAB PO DAILY, (Reported) Ranitidine HCl (Zantac 75) 75 Mg Tab, 75 MG PO DAILY, (Reported) Tamsulosin Hydrochloride (Flomax) 0.4 Mg Cap, 0.4 MG PO QHS, (Reported) Scheduled PRN Acetaminophen (Tylenol) 325 Mg Tab, 325 MG PO Q4HP PRN for PAIN / FEVER, ( Reported) Cyclobenzaprine HCl (Cyclobenzaprine HCl) 10 Mg Tab, 10 MG PO TID PRN for MUSCLE SPASMS, (Reported) Tramadol HCl (Tramadol HCl) 50 Mg Tab, 50 MG PO QID PRN for PAIN, (Reported) Allergies Coded Allergies: TARYN Inhibitors (Unverified Adverse Reaction, Intermediate, COUGH, 01/01/13) Atenolol (Unverified Adverse Reaction, Mild, DECREASED HEART RATE, 01/01/13) Past Medical History Medical History General good health. Does have history of gastric reflux. He has been recently constipated secondary to the pain medications. He has a history of benign prostatic hypertrophy. He denies any heart issues or COPD. Social History Social History Denies tobacco, alcohol, or illicit substance abuse. Quit smoking 40 years ago. He lives with his of many years. He is retired continues to lead a very active life Review of Systems Subjective Constitutional: Reports: fatigue, Denies: unexplained weight loss HEENT: Denies: head aches, vision problems, hearing problems Skin: Denies: lesions, rash, breakdown Pulmonary: Denies: cough, dyspnea Cardiovascular: Denies: chest pain, edema, palpitations Gastrointestinal: Reports: constipation (secondary to medications no loss of bowel control) Genitourinary: Reports: other (history of prostatic enlargement with some nocturia. Denies hematuria) Endocrine: Denies: Diabetes mellitus Neurological: Reports: tingling (new onset numbness and tingling sole of left foot) Psych: Reports: mood normal, Denies: thoughts of self harm, thoughts of harming other Physical Examination Physical Examination Vital Signs/I&O Vital Signs Date Time Temp Pulse Resp B/P (MAP) Pulse Ox O2 Delivery O2 Flow Rate FiO2 05/08/17 14:00 98.3 56 18 131/62 (85) 97 Room Air I&O- Last 24 Hours up to 6 AM 05/08/17 06:00 Intake Total 920 ml Output Total 1900 ml Balance -980 ml General Exam: Positive: alert, attentive, talkative, no acute distress, oriented times three Visual Analog Score (VAS): 5 ENT EXAM: Positive: normocephalic Neck Exam: Negative: Lymphadenopathy, Thyromegaly Chest Exam: Positive: Clear to auscultation, Negative: Wheezing, Rales Heart Exam: Positive: Regular rate and rhythm, Normal S1, S2, Negative: Murmurs, Rubs Abdominal Exam: Positive: Normal bowel sounds, Soft, Nondistended Extremity Exam: Negative: Edema Skin Exam: Positive: Warm, Dry, Negative: Rashes, Lesions Neuro Exam: Positive: Other (decreased sensation to light touch only over the sole of the right foot. DTRs 1+ in the bilateral upper and bilateral lower extremities. No clonus. Plantar responses flexor) Inspection of spine Minimal tenderness with palpation over lumbar spinous processes and across the lumbosacral axis. No specific tenderness is elicited with palpation bilaterally at the sacroiliac joints. Musculoskeletal Point tenderness elicited with palpation over the right. Formless to the right trochanter. Muscle strength 5 over 5 distally and proximally in the bilateral upper and lower extremities. Able to rise to a sitting position today. Laboratory Data CBC/BMP Laboratory Tests 05/08/17 05:26 Red Blood Count 3.20 L, Mean Corpuscular Volume 96.7 H, Mean Corpuscular Hemoglobin 33.1 H, Mean Corpuscular Hemoglobin Concent 34.3, Red Cell Distribution Width 13.0, Calcium Level 10.2 Diagnostic and Imaging Studies MRI of the lumbar spine was completed on 05/04/2017. This did demonstrate multilevel degenerative disc disease and facet joint osteoarthritis throughout the entire lumbar sacral spine with a large 8 mm disc herniation at L5-S1 extending to the right. Pressures of the thecal sac and resulting in bilateral foraminal stenosis with possible impingement on the intracanal of the right S1 nerve root. There is degenerative spondylolisthesis at L4-5 with possible impingement on the exiting left L4 nerve root. There are degenerative changes, which resulted in a 0.6 cm canal stenosis at L3-4. Is degenerative changes with possible impingement on the exiting right L2 nerve root. 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 Low back pain. 2. Lumbar disc displacement with radiculopathy. 3. Possible sacroiliitis. 4. Myofascial pain/piriformis syndrome, right side. Recommendation and Plan Options for continued treatment. Discussed with the patient and his . They would like to move forward with interventional therapy. I did review option of lumbar epidural steroid injection. I did also discuss with them that Dr. Anguiano may make a change in the action planned and may move to do something such as a trigger point or sacroiliac joint injection or her piriformis injection depending on where he can locate the pain under fluoroscopy. Would have patient continue with his current medications and physical therapy. Should he remain hospitalized we'll be glad to follow during his hospital stay. Thank you Calin, for allowing us to participate in the care of your patient , Sharif Ann. Should you have any questions we will be glad to discuss this with you at any time please contact us here at the pain center at [phone]. Tahmina John May 08, 2017 19:16
[2017-05-08 22:00] VITALS: BP 150/68
[2017-05-09] VITALS (7 sets, daily range): BP systolic 133–162; BP diastolic 60–76
[2017-05-09] MEDS: HEPARIN SOD (PORCINE) 5000 UNITS/ML VIAL SQ SCH ×3 (06:00→22:12)
[2017-05-09 06:41] LABS: MEAN CORPUSCULAR HGB CONC 33.7 g/dl (32.0-36.5); RED CELL DISTRIBUTION WIDTH 12.7 % (11.5-14.5); WHITE BLOOD COUNT 7.2 K/mm3 (4.0-10.0)
[2017-05-09 06:56] LABS: CREATININE FOR GFR 1.53 MG/DL (0.70-1.30); GLOMERULAR FILTRATION RATE 46.4 (>35); POTASSIUM SERUM 4.1 MEQ/L (3.5-5.1)
[2017-05-09] MEDS: GABAPENTIN 300 MG CAP PO SCH ×3 (08:04→20:57)
[2017-05-09] MEDS: DOCUSATE SODIUM 100 MG CAP PO SCH ×2 (08:05→20:57)
[2017-05-09] MEDS: MULTIVITAMINS/MINERALS THERAP 1 TAB PO SCH (08:05)
[2017-05-09] MEDS: amLODIPine 5 MG TAB PO SCH (08:06)
[2017-05-09] MEDS: hydroCHLOROthiazide 25 MG TAB PO SCH (08:07)
[2017-05-09] MEDS: POTASSIUM CHLORIDE 10 MEQ SR TABLET PO SCH ×2 (09:00→20:57)
[2017-05-09] MEDS ORDERED: oxyCODONE 5MG TAB As Ordered ONE (15:25)
[2017-05-09] MEDS ORDERED: diazePAM 5 MG TAB As Ordered ONE (15:26)
[2017-05-09] MEDS ORDERED: LIDOCAINE 1% SDV INJ 30 ML VIAL As Ordered ONE (15:36)
[2017-05-09] MEDS ORDERED: methylPREDNISolone SUSP 40 MG/ML (DEPO-medrol) VIAL (J1030) As Ordered ONE (15:36)
[2017-05-09] MEDS ORDERED: ISOVUE-M 300 61% 15ML VIAL (Q9967) As Ordered ONE (15:36)
[2017-05-09] MEDS: FINASTERIDE 5 MG TAB PO SCH (18:47)
[2017-05-09] MEDS: TAMSULOSIN 0.4 MG CAP PO SCH (18:47)
--- NOTE | 2017-05-10 01:50 | IPNPDOC ---
Subjective Date Seen The patient was seen on 05/09/17. Subjective Chief Complaint/HPI The patient is a 86-year-old male admitted with a reason for visit of Intractable Back Pain. Events since last encounter Patient plans to have an epidural injection today. Otherwise denies complaints. Constitutional: Denies: Chills, Fever Pulmonary: Denies: Dyspnea, Cough Cardiovascular: Denies: Chest Pain Gastrointestinal: Denies: Nausea, Vomiting, Diarrhea, Constipation Musculoskeletal: Reports: Back Pain, Leg Pain Neurological: Reports: Weakness Objective Physical Examination General Exam: Positive: Alert, No Acute Distress Chest Exam: Positive: Clear to auscultation, Normal air movement Heart Exam: Positive: Rate Normal, Normal S1, Normal S2 Abdomen Exam: Positive: Normal bowel sounds, Soft, Negative: Tenderness Extremity Exam: Negative: Edema Psych Exam: Positive: Mental status NL Assessment /Plan Problems (1) Lumbar disc herniation with radiculopathy Status: Acute Response to Treatment: Stable Discussed With: Patient, Family with Pt Consent Problem Specific Plan: Consult Specialist, Monitor Clinically Problem Text: 05/09 -- plan epidural injection today, likely DC tomorrow 05/08 - Pt would like to try the epidurals and he requests inpt pain management consultation vs going home and following up for epidurals as an outpt. I discussed the case with Dr. Emmanuel this morning; he recommends an epidural injection, which patient also wants. Dr. Emmanuel recommended either Pain consult tomorrow to schedule epidural injection while inpatient, or if patient is able to tolerate discharge home, then discharge home and follow-up with him in the office. I encouraged patient to try to sit today to see if this exacerbates his pain. NS consulted and offered surgical treatment option, which patient declined. Pain managed with Tramadol 50 mg every 6 h as needed for pain. Gabapentin increased on 05/07 from 100 mg TID to 300 mg TID. 05/04 MRI LS: IMPRESSION: 1. 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 2. Degenerative spondylolisthesis at L4/L5 with possible impingement upon the exiting left L4 nerve root. 3. The degenerative changes result in 0.6 cm canal stenosis at L3/L4. 4. The degenerative changes result in possible impingement upon the exiting right L2 nerve root. 5. The degenerative changes at L1/L2 do not result in significant canal stenosis or nerve root compression. 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 (2) Intractable back pain Status: Acute Problem Text: See above. (3) Degenerative disc disease, lumbar Status: Acute (4) CKD (chronic kidney disease), stage III Status: Chronic Response to Treatment: Stable Problem Text: at baseline cr ~1.6 (5) Hypertension Status: Chronic Response to Treatment: Stable Problem Text: Stable off HD amlo 5/HCTZ 25 Plan/VTE VTE Prophylaxis Ordered?: Yes VS, I&O, 24H, Fishbone Vital Signs/I&O Vital Signs Date Time Temp Pulse Resp B/P (MAP) Pulse Ox O2 Delivery O2 Flow Rate FiO2 05/09/17 22:00 98.7 74 20 133/71 (91) 94 05/09/17 21:01 Room Air I&O- Last 24 Hours up to 6 AM 05/10/17 05:59 Intake Total 680 ml Output Total 2200 ml Balance -1520 ml Laboratory Data 24H LABS Laboratory Tests 2 05/09/17 06:23: Anion Gap 7L, Glomerular Filtration Rate 46.4, Blood Urea Nitrogen 30H, Creatinine 1.53H, Sodium Level 145, Potassium Level 4.1, Chloride Level 107, Carbon Dioxide Level 31, Calcium Level 10.0 CBC/BMP Laboratory Tests 05/09/17 06:23 Red Blood Count 3.28 L, Mean Corpuscular Volume 98.0 H, Mean Corpuscular Hemoglobin 33.0, Mean Corpuscular Hemoglobin Concent 33.7, Red Cell Distribution Width 12.7, Calcium Level 10.0 LUCAS DORANTES DO May 10, 2017 01:50
[2017-05-10 02:00] VITALS: BP 132/74
[2017-05-10 06:00] VITALS: BP 128/70
[2017-05-10] MEDS: HEPARIN SOD (PORCINE) 5000 UNITS/ML VIAL SQ SCH (06:32)
[2017-05-10 07:00] LABS: MEAN CORPUSCULAR HEMOGLOBIN 32.6 pg (27.0-33.0); MEAN CORPUSCULAR HGB CONC 33.5 g/dl (32.0-36.5); MEAN CORPUSCULAR VOLUME 97.3 fl (80.0-96.0); RED CELL DISTRIBUTION WIDTH 12.4 % (11.5-14.5); WHITE BLOOD COUNT 12.2 K/mm3 (4.0-10.0)
[2017-05-10 07:11] LABS: CALCIUM LEVEL 9.7 MG/DL (8.8-10.2); CREATININE FOR GFR 1.6 MG/DL (0.70-1.30); GLOMERULAR FILTRATION RATE 44.1 (>35); POTASSIUM SERUM 4.7 MEQ/L (3.5-5.1)
[2017-05-10] MEDS: DOCUSATE SODIUM 100 MG CAP PO SCH (08:56)
[2017-05-10] MEDS: MULTIVITAMINS/MINERALS THERAP 1 TAB PO SCH (08:56)
[2017-05-10] MEDS: POTASSIUM CHLORIDE 10 MEQ SR TABLET PO SCH (08:56)
[2017-05-10] MEDS: GABAPENTIN 300 MG CAP PO SCH (08:56)
[2017-05-10 08:57] VITALS: BP 128/70
[2017-05-10] MEDS: amLODIPine 5 MG TAB PO SCH (08:57)
[2017-05-10] MEDS: hydroCHLOROthiazide 25 MG TAB PO SCH (08:57)
[2017-05-10 10:00] VITALS: BP 146/71
[2017-05-10] MEDS ORDERED: GABA-282 PO (10:24)
--- NOTE | 2017-05-10 11:00 | DSES ---
DATE OF ADMISSION: 05/04/2017 DATE OF DISCHARGE: 05/10/2017 PRIMARY CARE PROVIDER: Dr. Andreas Gonsales ATTENDING PHYSICIAN: Brandi Dozier DO CONSULTANTS: Dr. Jeff Emmanuel and Cathleen John NP from pain management. HISTORY OF PRESENT ILLNESS: Sharif Mendoza is an 86-year-old male patient who follows with Dr. Gonsales, who presented to the emergency room with intractable back pain. The patient had an MRI of lumbosacral spine that showed multi level degenerative disc disease with facet osteoarthritis throughout the entire lumbar and sacral spine. Large 8 mm disc herniation of L5-S1 extending to the right anterolateral thecal sac with compression of the thecal sac resulting in bilateral foraminal stenosis with possible impingement upon the intra canal right S1 nerve roots. Spondylolisthesis noted at L4-5 with possible impingement on the exiting L4 nerve root. Canal stenosis L3-4. Degenerative changes and possible impingement on the right L2 nerve root. Degenerative changes L1-2. Tarlov cyst in the sacral spine noted. The patient was admitted for further evaluation and treatment. The patient was seen by Dr. York, neurosurgeon, who discussed surgical options. The patient was also seen by Dr. Emmanuel from orthopedics. The patient was not interested in having surgery, and Dr. Emmanuel agreed with consideration of nonoperative measures and suggested epidurals. Dr. Emmanuel talked about having the patient follow up with him in the office versus inpatient pain management referral for epidural injections. The patient did elect to have pain management see him in the hospital and initiate epidural injections. The patient did receive the epidural injections after seeing pain management and noted significant improvement in the symptoms. Physical therapy did advise continued use of rolling walker, which the patient states he does have at home. During the course of the patient's hospitalization, he was started on gabapentin and will be discharged home on that. His naproxen was stopped during the course of hospitalization. The patient wishes to follow up with pain management and Dr. Emmanuel upon followup as an outpatient. The patient was continued on his regular medications, including his Norvasc and hydrochlorothiazide for hypertension. By day of discharge, the patient states his pain was significantly improved. He worked with physical therapy and did well. PHYSICAL EXAMINATION VITAL SIGNS: Temperature 98.0, pulse 64, respiratory rate 20, blood pressure is 128/70, pulse oximetry 96%. GENERAL: The patient is alert, no acute distress. No respiratory distress. CHEST: Clear to auscultation bilaterally. HEART: Regular rate and rhythm. ABDOMEN: Positive bowel sounds, soft, nontender. EXTREMITIES: No clubbing, cyanosis or edema. NEUROLOGIC: Nonfocal grossly. LABORATORY DATA: WBC 12.2, hemoglobin 11.8, hematocrit 35.1, platelets 307. Sodium 142, potassium 4.7, chloride 106, carbon dioxide 28, BUN 35, creatinine 1.60, glucose 188, calcium 9.7. MEDICATIONS: - gabapentin 300 mg by mouth three times a day - acetaminophen 325 mg by mouth every four hours as needed for pain or fever - amlodipine 5 mg by mouth daily - cyclobenzaprine 10 mg by mouth three times a day as needed for spasm - Proscar 5 mg by mouth daily - hydrochlorothiazide 25 mg by mouth daily - multivitamin by mouth daily - ranitidine 75 mg by mouth daily - Flomax 0.4 mg by mouth daily - tramadol 50 mg by mouth four times a day as needed for pain DISCHARGE INSTRUCTIONS: Followup with Dr. Gonsales in 1 week. Followup with pain management per their instructions. Followup with Dr. Emmanuel in a week. Diet is no added salt. Activity as tolerated. DISCHARGE DIAGNOSES: 1. Lumbar disc herniation with radiculopathy. 2. Intractable back pain. 3. Degenerative disc disease, lumbar. 4. Chronic kidney disease stage III. 5. Hypertension. [facility]
--- NOTE | 2017-05-10 17:09 | REP ---
FLUORO GUIDANCE: The images were reviewed with Dr. Cordova. The patient has a history of low back pain. The portable C-Arm is provided in the OR for Dr. Silva for fluoroscopic guidance. Three intraoperative fluoroscopic spot films were obtained for needle placement verification for lumbar epidural injection. The films are on the PACs system and are available for review. 12 seconds of fluoroscopy time was utilized for this procedure. Reviewed by CARO Bustos 05/11/2017 05:29 PEdited and Signed by Raad Cordova MD 05/12/2017 04:56 P
== END 2017-05-10 11:27 | disposition home or self-care (01) | DRG 552 ==
LOC: M ED 17:17 → M ED INP 21:29 → M MSPAV 23:12
PROVIDERS: ADMIT Hospitalist; ATTEND Family Medicine
PROC: 3E0R3GC Introduction of Other Therapeutic Substance into Spinal Canal, Percutaneous Approach (ICD-10-PCS; principal; 2017-05-09)
DX: M51.27 Other intervertebral disc displacement, lumbosacral region (principal); M51.37 Other intervertebral disc degeneration, lumbosacral region; Z79.899 Other long term (current) drug therapy; M47.816 Spondylosis without myelopathy or radiculopathy, lumbar region; N18.3 Chronic kidney disease, stage 3 (moderate); I12.9 Hypertensive chronic kidney disease with stage 1 through stage 4 chronic kidney disease, or unspecified chronic kidney disease; N40.0 Benign prostatic hyperplasia without lower urinary tract symptoms; K21.9 Gastro-esophageal reflux disease without esophagitis; Z88.8 Allergy status to other drugs, medicaments and biological substances; Z96.642 Presence of left artificial hip joint; M79.1 Myalgia

== ENCOUNTER → 2017-05-16 | Outpatient (CLI) | payer MEDICARE ==
[~2017-05-16] MED LIST changes: +CYCL10TA PO; +GABA-282 PO; +TRAM50TA2 PO; +VITMTA PO
--- NOTE | 2017-05-16 13:43 | REP ---
Duplex extremity venous ultrasound: Left lower extremity. History: Left calf pain question DVT. Findings: The deep veins are anechoic and fully compressible from the groin to the popliteal fossa in the left lower extremity. Color flow imaging is homogeneous. Spectral Doppler interrogation demonstrates intact respiratory variation in flow and normal manual augmentation of flow. There is no evidence of deep vein thrombosis. Scanning over the posterior medial popliteal fossa demonstrates a complex fluid collection extending into the calf measuring 7.3 by 2.5 x 4.1 cm. This may be a Sy's cyst. It contains a few septations. 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 Otherwise negative left lower extremity duplex venous ultrasound. No evidence of deep vein thrombosis. Signed by Delroy Bowen MD 05/16/2017 01:35 P
== END ==
LOC: M RAD 12:55
PROVIDERS: ATTEND Physician Assistant
DX: M79.662 Pain in left lower leg (principal)
CPT/HCPCS: 93971; G0463

== ENCOUNTER → 2017-06-12 | Outpatient (CLI) | payer MEDICARE ==
--- NOTE | 2017-06-28 01:41 | ECWPNPC ---
PATIENT NAME: SHREYAS AMBROCIO : 1930 GENDER: MALE VISIT DATE: 06/12/2017 DISCHARGE DATE: 06/12/17 1141 VISIT LOCKED DATE TIME: PHYSICIAN: SHIVANI VASQUEZ PHYSICIAN PAGER NO: [phone] RESOURCE: SHIVANI VASQUEZ REASON FOR APPOINTMENT 1. BACK PAIN HISTORY OF PRESENT ILLNESS FALL RISK SCREENING: SCREENING :NO FALLS IN THE PAST YEAR PAIN SCREENING: PATIENT HAS A COMPLAINT OF ACUTE OR CHRONIC PAIN :YES TODAY'S VISIT: NOTES: PT REFERRED BY ISABELLA BEAR FOR FOLLOWUP CARE FOR LOW BACK PAIN. HAD LESB DURING INPATIENT STAY ON 05/09/17. REPORTS PAIN LEVEL PRIOR TO INJECTION WAS 3/10 AND POST INJECTION WAS 2/10. STILL HAVING N/T INTO LEFT LEG TO THE FOOT. THIS IS MARGINALLY BETTER. PAIN IS LESS IN THE BACK AND BUTTUCK. SOME SHARP DISC WITH LIFTING LEG FOR STEPS OR THE CAR. SLEEP IS WITHOUT DIFF. NO PAIN WHEN LAYING DOWN. . CURRENT MEDICATIONS TAKING SYSTANE 0.4-0.3 % SOLUTION 1 DROP INTO BOTH EYES OPHTHALMIC USE NEEDED TAKING MULTIVITAMINS OTC TABLET 1 TABLET ORALLY ONCE A DAY TAKING NORVASC 5MG TABLET 1 TABLET ORALLY ONCE A DAY TAKING HYDROCHLOROTHIAZIDE 25 25 MG TABLET 1 TABLET ORALLY ONCE A DAY TAKING FLOMAX 0.4 MG CAPSULE EXTENDED RELEASE 24 HOUR 1 CAPSULE 30 MINUTES AFTER THE SAME MEAL EACH DAY ORALLY ONCE A DAY TAKING PROSCAR 5 MG TABLET 1 TABLET ORALLY ONCE A DAY TAKING TRAMADOL HCL 50 MG TABLET 1 TABLET NEEDED ORALLY FOUR TIMES DAILY NEEDED TAKING GABAPENTIN 300 MG CAPSULE 1 CAPSULE ORALLY THREE TIMES A DAY, NOTES: ONLY TAKING IT TWICE A DAY TAKING COLACE 100 MG CAPSULE 1 CAPSULE NEEDED ORALLY ONCE A DAY NOT-TAKING ZANTAC 75 OTC TABLET 1 TABLET ORALLY ONCE A DAY NOT-TAKING CYCLOBENZAPRINE HCL 10 MG TABLET 1 TABLET NEEDED ORALLY THREE TIMES A DAY MEDICATION LIST REVIEWED AND RECONCILED WITH THE PATIENT PAST MEDICAL HISTORY HYPERTENSION ESOPHAGEAL REFLUX BPH LVH HYPERCHOLESTEROLEMIA CHOLANGITIS S/P ERCP/ STENT CAL[place]TO 07/08 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 ANEMIA OF CHRONIC DISEASE 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 ( WKUP DONE) BACK PAIN - CHRONIC CKD3-- GFR 40 NST 05/15: NL PERFUSION, EF 40% AT REST, 44% WITH ACTIVITY--[facility] ECHO 05/15: LAE 46 MM, EF 60%-- [facility] ALLERGIES ATENOLOL: DECREASED HEARTRATE: SIDE EFFECTS TARYN INHIBITORS: COUGH: SIDE EFFECTS SURGICAL HISTORY LEFT DIRECT HERNIA REPAIR TRUS BIOPSY CHOLECYSTECTOMY AND COMMON BILE DUCT STONE REMOVAL THROUGH ERCP 04/01 COLONOSCOPY--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 OLDEST SON-HEART ISSUES. SOCIAL HISTORY GENERAL: TOBACCO USE ARE YOU A:FORMER SMOKER HOW LONG HAS IT BEEN SINCE YOU LAST SMOKED?> 10 YEARS LUNG CANCER SCREENING SMOKING STATUS:FORMER SMOKER ALCOHOL SCREENING POINTS0 INTERPRETATIONNEGATIVE RECREATIONAL DRUG USE DRUG USE?NO CAFFEINE CAFFEINE USE?YES OCCUPATION: RETIRED. DIET: LOW FAT, LOW CHOLESTEROL, NO ADDED SALT, NO CONCENTRATED SWEETS.. EXERCISE: ELLIPTICAL,RESISTANCE TRAINING 3X WEEKLY. MARITAL STATUS: --MARTINEZ /1951 . OTHERS AT HOME: SPOUSE. PETS: NONE. JEWISH NO MOSQUE BELIEFS THAT WOULD IMPACT HEALTH CARE. LANGUAGE LANGUAGES SPOKEN:YAKUT LEARNING BARRIERS / SPECIAL NEEDS BARRIERS TO LEARNING?NO HEARING IMPAIRED?NO VISION IMPAIRED?YES :CORRECTIVE LENSES COGNITIVELY IMPAIRED?NO READINESS TO LEARN?YES LEARNING PREFERENCES?NO LEARNING CAPABILITIES PRESENT?YES EMOTIONAL BARRIERS?NO SPECIAL DEVICES?YES :PEDRO MACK INCIDENT RESPONSE LEAD NEEDED?NO ADVANCE DIRECTIVES HEALTH CARE PROXY?YES NAME OF HCP MARTINEZ AMBROCIO DO YOU HAVE A DNR?NO WOULD YOU LIKE MORE INFORMATION?NO LIVING WILL?YES POWER OF BELT CHANGER?YES NAME OF POA? -MARTINEZ AMBROCIO RETIRED: YES--[employer]// RETIRED 1994. HOSPITALIZATION/MAJOR DIAGNOSTIC PROCEDURE BACK PAIN RADIATING DOWN RIGHT LEG 05/18 REVIEW OF SYSTEMS REVIEWED BY: PROVIDER: SHIVANI CORMIER . CONSTITUTIONAL: ANY CHANGE IN YOUR MEDICAL CONDITION? NO . CHILLS NO . FEVER NO . INFECTION: DO YOU HAVE NEW INFECTIONS? NO . DO YOU HAVE HISTORY OF MRSA? NO . MUSCULOSKELETAL: ANY NEW PATTERNS OF PAIN OR NUMBNESS? NO . SYTEMIC LUPUS NO . GASTROENTEROLOGY: ANY NEW CHANGE IN BOWEL CONTROL? NO . BARRETTS ESOPHAGUS NO . CIRRHOSIS NO . HEPATITIS NO . LIVER FAILURE NO . ACID REFLUX YES - IMPROVED WITH TUMS . UNEXPLAINED WEIGHT LOSS NO . GENITOURINARY: ANY NEW CHANGE IN BLADDER CONTROL? NO . IS THERE A CHANCE YOU COULD BE ? NO . HEMATOLOGY/LYMPH: DO YOU TAKE ANY BLOOD THINNERS? (FOR EXAMPLE- COUMADIN, PLAVIX, AGGRENOX, PLATEL, PRADAXA, OR XARELTO) NO . WHEN WAS YOUR LAST DOSE? DATE: TIME: . LOW PLATELET COUNT NO . SICKLE CELL DISEASE NO . VON WILLIEBRANDS NO . FACTOR V LEIDEN NO . THALLASEMIA NO . ANEMIA NO . EASY BRUISING NO . NEUROLOGY: HAVE YOU FALLEN IN THE PAST 6 MONTHS? NO . ANY NEW EXTREMITY NUMBNESS OR WEAKNESS? NO . HEAD INJURY NO . DEMENTIA NO . CEREBRAL PALSY NO . MULTIPLE SCLEROSIS NO . DIZZINESS NO . HEADACHE NO . STROKES NO . VERTIGO NO . CARDIOLOGY: DO YOU HAVE A PACEMAKER OR DEFIBRILLATOR? NO . ANGINA NO . HEART ATTACK NO . HEART SURGERY NO . CONGESTIVE HEART FAILURE/FLUID OVERLOAD NO . CHEST PAIN NO . HIGH BLOOD PRESSURE ON MEDICATION(S) . IRREGULAR HEART BEAT NO . RESPIRATORY: HAVE YOU BEEN SICK IN THE PAST WEEK? NO . FEVER NO . FLU LIKE SYMPTOMS? NO . CPAP NO . BYPAP NO . ASTHMA NO . EMPHYSEMA NO . CHRONIC LUNG DISEASES NO . SHORTNESS OF BREATH ON EXERTION NO . COUGH NO . SNORING NO . INTEGUMENTARY: DO YOU HAVE ANY RASHES OR OPEN SORES? NO . ALLERGIC/IMMUNO: ARE YOU ALLERGIC TO SHELLFISH OR IV DYE? NO . ANY NEW ALLERGIES? NO . PSYCHIATRIC: DO YOU HAVE THOUGHTS OF HURTING YOURSELF OR SOMEONE ELSE? NO . ARE YOU ABUSED, NEGLECTED, OR IN AN UNSAFE ENVIRONMENT? NO . ENDOCRINOLOGY: ARE YOU DIABETIC? NO . THYROID DISORDER NO . OTHER: DO YOU NEED ANY PRESCRIPTIONS? NO . IF YES, PLEASE LIST: ____ . ANY NEW PROBLEMS WITH YOUR MEDICATIONS? NO . WHEN DID YOU LAST EAT? ____ . WHEN DID YOU LAST DRINK? ____ . WHAT DID YOU LAST DRINK? ____ . NAME OF PERSON DRIVING YOU HOME? ____ . DO YOU HAVE ANY OTHER QUESTIONS OR CONCERNS NO . VITAL SIGNS WT 172 LBS, HT 75 IN, BMI 21.50 INDEX, BP 149/67 MM HG, HR 82 /MIN, RR 16 /MIN, TEMP 98.7 F, OXYGEN SAT % 94, REVIEWED BY: EM. EXAMINATION GENERAL EXAMINATION: PSYCHALERT , ORIENTED X 3 , APPROPRIATE MOOD AND AFFECT . HEENT:NORMOCEPHALIC, NO LYMPHADENOPATHY, NO THYROMEGLY. LUNGS:CLEAR TO AUSCULTATION BILATERALLY, NO WHEEZES, RALES OR RHONCHI. HEART:HEART RATE REGULAR, NO CAROTID BRUITS. MUSCULOSKELETAL:MUSCLE STRENGTH TESTING 5/5 LEFT LOWER EXTREMITY, 5-/5 RIGHT LOWER EXTREMITIY. TENDER WITH PALPATION OVER LUMBAR SPINOUS PROCESSES AND AT RIGHT SACRAL ILIAC JOINT. EXTREMITIES:TRACE EDEMA BILATERAL LOWER EXTREMITIES. NEUROLOGIC EXAM:CN'S II-XII GROSSLY INTACT. DTR'S TRACE TO ABSENT RIGHT LOWER EXTREMITY, 2+ LEFT LOWER EXTREMITY. DECREASED SENSATION TO LIGHT TOUCH RIGHT LOWER EXTREMITY OVER ANTERIOR AND LATERAL THIGH, LATERAL CALF AND FOOT.. 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 LISTEN TO YOUR BODY. CALL IF PAIN RETURNS. USE TYLENOL NEEDED FOR PAIN. PROCEDURE CODES FA211 ESTABILISHED PATIENT [facility] FACILITY CHARGE G8783 BP SCR PRFRM RCMDD DEFIND SCR INTVL G8730 PAIN ASSESS POS TOOL F/U PLAN DOC 3016F PT SCRND UNHLTHY OH USE 1124F ACP DISCUSS-NO DSCNMKR DOCD 1036F TOBACCO NON-USER G8427 DOC MEDS VERIFIED W/PT OR RE G8420 BMI<30 AND >=22 CALC & DOCU 3288F FALL RISK ASSESSMENT DOCD DISPOSITION & COMMUNICATION FOLLOW UP 3 MONTHS (REASON: BACK PAIN ) ELECTRONICALLY SIGNED BY RUFINA GARCIA ON 06/27/2017 AT 07:27 PM EDT DISCLAIMER : THIS IS A VISIT SUMMARY EXTRACTED FROM THE [employer] CHART. IT IS NOT A COPY OF THE [employer] PROGRESS NOTE. RODRIGO
== END ==
LOC: M PAIN 11:00
PROVIDERS: ATTEND Nurse Practitioner Family
DX: G89.29 Other chronic pain (principal); M51.16 Intervertebral disc disorders with radiculopathy, lumbar region; E78.2 Mixed hyperlipidemia; K21.9 Gastro-esophageal reflux disease without esophagitis; E55.9 Vitamin D deficiency, unspecified; I10 Essential (primary) hypertension; Z88.8 Allergy status to other drugs, medicaments and biological substances; Z79.899 Other long term (current) drug therapy; Z87.891 Personal history of nicotine dependence

== ENCOUNTER → 2017-09-11 | Outpatient (CLI) | payer MEDICARE | LOC: M PAIN 11:00 | DX: M51.16 Intervertebral disc disorders with radiculopathy, lumbar region (principal); I12.9 Hypertensive chronic kidney disease with stage 1 through stage 4 chronic kidney disease, or unspecified chronic kidney disease; N40.0 Benign prostatic hyperplasia without lower urinary tract symptoms; N18.3 Chronic kidney disease, stage 3 (moderate); Z79.899 Other long term (current) drug therapy; Z87.891 Personal history of nicotine dependence; Z88.8 Allergy status to other drugs, medicaments and biological substances | CPT/HCPCS: G0463 ==

== ENCOUNTER → 2017-10-23 | Outpatient (REF) | payer MEDICARE ==
[2017-10-23 13:39] LABS: ANION GAP 8 MEQ/L (8-16); BLOOD UREA NITROGEN 27 MG/DL (7-18); CALCIUM LEVEL 9.2 MG/DL (8.8-10.2); CARBON DIOXIDE LEVEL 32 MEQ/L (21-32); CHLORIDE LEVEL 104 MEQ/L (98-107); CREATININE FOR GFR 1.65 MG/DL (0.70-1.30); GLOMERULAR FILTRATION RATE 42.4 (>35); GLUCOSE, FASTING 148 MG/DL (70-100); MAGNESIUM LEVEL 2.2 MG/DL (1.8-2.4); POTASSIUM SERUM 3.8 MEQ/L (3.5-5.1); SODIUM LEVEL 144 MEQ/L (136-145)
== END ==
LOC: M SFHCADAM 09:37
DX: E87.6 Hypokalemia (principal)
CPT/HCPCS: 83735

== ENCOUNTER → 2017-12-18 | Outpatient (REF) | payer MEDICARE ==
[2017-12-18 11:26] LABS: HEMATOCRIT 33.2 % (42.0-52.0); HEMOGLOBIN 10.9 g/dl (14.0-18.0); MEAN CORPUSCULAR HEMOGLOBIN 31.2 pg (27.0-33.0); MEAN CORPUSCULAR HGB CONC 32.8 g/dl (32.0-36.5); MEAN CORPUSCULAR VOLUME 95.1 fl (80.0-96.0); PLATELET COUNT, AUTOMATED 344 10^3/uL (150-450); RED BLOOD COUNT 3.49 10^6/uL (4.30-6.10); RED CELL DISTRIBUTION WIDTH 12.4 % (11.5-14.5); WHITE BLOOD COUNT 8.1 10^3/uL (4.0-10.0)
[2017-12-18 11:41] LABS: ALBUMIN 3.6 GM/DL (3.2-5.2); ALBUMIN/GLOBULIN RATIO 1.03 (1.00-1.93); ALKALINE PHOSPHATASE 92 U/L (45-117); ALT/SGPT 19 U/L (12-78); ANION GAP 8 MEQ/L (8-16); AST/SGOT 20 U/L (7-37); BILIRUBIN,TOTAL 0.5 MG/DL (0.2-1.0); BLOOD UREA NITROGEN 31 MG/DL (7-18); CALCIUM LEVEL 9.5 MG/DL (8.8-10.2); CARBON DIOXIDE LEVEL 30 MEQ/L (21-32); CHLORIDE LEVEL 106 MEQ/L (98-107); CHOLESTEROL LEVEL 170 MG/DL (<200); CHOLESTEROL RISK RATIO 2.833 (<5); CREATININE FOR GFR 1.58 MG/DL (0.70-1.30); GLOMERULAR FILTRATION RATE 44.6 (>35); GLUCOSE, FASTING 96 MG/DL (70-100); HDL CHOLESTEROL 60 MG/DL (>40); LDL CHOLESTEROL 94.6 MG/DL (<100); NON-HDL-C 110 MG/DL; POTASSIUM SERUM 3.7 MEQ/L (3.5-5.1); SODIUM LEVEL 144 MEQ/L (136-145); TOTAL PROTEIN 7.1 GM/DL (6.4-8.2); TRIGLYCERIDES LEVEL 77 MG/DL (<150)
[2017-12-18 11:45] LABS: TOTAL 25(OH) VITAMIN D 41.9 NG/ML (30.0-100.0)
== END ==
LOC: M SFHCCLAY 08:08
DX: N18.3 Chronic kidney disease, stage 3 (moderate) (principal); D63.8 Anemia in other chronic diseases classified elsewhere; I11.9 Hypertensive heart disease without heart failure; E78.2 Mixed hyperlipidemia; E55.9 Vitamin D deficiency, unspecified
CPT/HCPCS: 80053

== ENCOUNTER → 2018-06-13 | Outpatient (CLI) | payer MEDICARE | LOC: M RAD 09:56 | DX: M48.061 Spinal stenosis, lumbar region without neurogenic claudication (principal) | CPT/HCPCS: 72148 ==

== ENCOUNTER 2019-04-06 10:51 | Emergency (ER) | payer MEDICARE ==
[~2019-04-06] VITALS: Ht 170.2 cm; Wt 72.7 kg
[~2019-04-06 10:51] MED LIST changes: +FLOM0.4C39 PO; -FLOM5CAP PO; -GABA-282 PO; +GABA-843 PO; +HYDR-2541 PO
[2019-04-06 11:29] LABS: BASO # 0.1 10^3/uL (0.0-0.2); BASO % 0.7 % (0.0-1.0); EOS # 0.1 10^3/uL (0.0-0.50); EOS % 1.8 % (0.0-3.0); HEMOGLOBIN 11.2 g/dl (13.5-17.5); LYMPH % 14.7 % (24.0-44.0); MEAN CORPUSCULAR HGB CONC 32.9 g/dl (32.0-36.5); MEAN CORPUSCULAR VOLUME 100.3 fl (80.0-96.0); MONO # 0.5 10^3/uL (0.0-0.8); NEUTROPHILS # 5.3 10^3/uL (1.8-7.7); NEUTROPHILS % 75.5 % (36.0-66.0); PLATELET COUNT, AUTOMATED 245 10^3/uL (150-450); RED BLOOD COUNT 3.39 10^6/uL (4.30-6.10)
--- NOTE | 2019-04-06 11:30 | REP ---
Clinical: Chest pain . Comparison: 05/04/2017 . Findings: The mediastinum and cardiac silhouette are stable and within normal limits for portable technique. The lung maloney demonstrate chronic interstitial changes and scattered chronic linear scarring. Subtle left basilar atelectasis cannot be excluded. No effusion or pneumothorax. Skeletal structures are intact. Impression: Chronic stable changes. Trace left basilar atelectasis. Electronically Signed by Vince Hernandez MD 04/06/2019 11:21 A
[2019-04-06 11:39] LABS: INR 1.02; PROTHROMBIN TIME 13.1 SECONDS (11.8-14.0)
[2019-04-06 12:02] LABS: ALBUMIN 3.7 GM/DL (3.2-5.2); BILIRUBIN,DIRECT 0.2 MG/DL (0.0-0.2); BILIRUBIN,TOTAL 0.5 MG/DL (0.2-1.0); CALCIUM LEVEL 8.7 MG/DL (8.8-10.2); CK-MB VALUE MASS 3.1 NG/ML (<3.6); CREATININE FOR GFR 1.55 MG/DL (0.70-1.30); GLOMERULAR FILTRATION RATE 45.5 (>35); MB/CK RELATIVE INDEX 2.3 (< OR =4); POTASSIUM SERUM 3.7 MEQ/L (3.5-5.1); THYROID STIMULATING HORMONE 2.64 uIU/ML (0.358-3.740); TOTAL PROTEIN 7.1 GM/DL (6.4-8.2); TROPONIN I 0.05 NG/ML (< 0.10)
[2019-04-06] MEDS ORDERED: ISOVUE-370 76% 100ML VIAL (Q9967) As Ordered ONE (12:16)
--- NOTE | 2019-04-06 12:47 | REP ---
Clinical: Acute chest pain. Technique: Axial contrast enhanced images from the thoracic inlet to the upper abdomen using 100 ml Isovue 370 intravenous contrast material with coronal and sagittal re-formations. Findings: Satisfactory enhancement of the pulmonary vasculature is achieved and no filling defects are identified to suggest pulmonary embolus. Lung maloney demonstrate mild bibasilar atelectasis (left greater than right). Thoracic aorta is normal caliber without aneurysm or dissection. Cardiomegaly is suggested without pericardial effusion. No significant axillary, hilar, or mediastinal adenopathy noted. Limited upper abdomen demonstrates prior cholecystectomy and pneumobilia along with normal bilateral adrenal glands, atrophic appearance to the bilateral kidneys, and 4 mm nonobstructing right renal calculus. Impression: No evidence for pulmonary embolus. Mild bibasilar atelectasis (left greater than right). Electronically Signed by Vince Hernandez MD 04/06/2019 12:39 P
[2019-04-06] MEDS ORDERED: NS 1,000 ML IV SCH (13:15)
[2019-04-06] MEDS ORDERED: ACETAMINOPHEN 325 MG TAB PO ONE (13:15)
--- NOTE | 2019-04-06 14:05 | ECGEPIP ---
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
[2019-04-06] MEDS ORDERED: ASPI81TA85 PO (14:36)
[2019-04-06] MEDS ORDERED: ASPIRIN 81 MG CHEW TABLET PO ONE (14:45)
[2019-04-06 17:00] VITALS: BP 163/79
[2019-04-06 17:32] LABS: CK-MB VALUE MASS 2.8 NG/ML (<3.6); MB/CK RELATIVE INDEX 2.33 (< OR =4); TROPONIN I 0.08 NG/ML (< 0.10)
--- NOTE | 2019-04-06 18:34 | ECGEPIP ---
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
== END 2019-04-06 17:54 | disposition home or self-care (01) ==
LOC: M ED 11:35
DX: R07.9 Chest pain, unspecified (principal); I45.10 Unspecified right bundle-branch block; I12.9 Hypertensive chronic kidney disease with stage 1 through stage 4 chronic kidney disease, or unspecified chronic kidney disease; N18.9 Chronic kidney disease, unspecified; N40.0 Benign prostatic hyperplasia without lower urinary tract symptoms; E78.9 Disorder of lipoprotein metabolism, unspecified; D64.9 Anemia, unspecified; G89.29 Other chronic pain; M54.9 Dorsalgia, unspecified; Z79.899 Other long term (current) drug therapy; Z79.82 Long term (current) use of aspirin; Z88.8 Allergy status to other drugs, medicaments and biological substances; Z87.891 Personal history of nicotine dependence
CPT/HCPCS: 36415; 71045; 71275; 80048; 80076; 82550; 82553; 83690; 83880; 84443; 84484; 85025; 85610; 93005; 93041; 94760; 99285; Q9967

== ENCOUNTER → 2019-07-26 | Outpatient (REF) | payer MEDICARE ==
[~2019-07-26] MED LIST changes: +ASPI81TA85 PO
[2019-07-26 13:10] LABS: HEMATOCRIT 33.7 % (42.0-52.0); HEMOGLOBIN 10.8 g/dl (13.5-17.5); MEAN CORPUSCULAR HEMOGLOBIN 32.3 pg (27.0-33.0); MEAN CORPUSCULAR VOLUME 100.9 fl (80.0-96.0); PLATELET COUNT, AUTOMATED 336 10^3/uL (150-450); RED BLOOD COUNT 3.34 10^6/uL (4.30-6.10); WHITE BLOOD COUNT 8.2 10^3/uL (4.0-10.0)
[2019-07-26 13:16] LABS: ALBUMIN 3.7 GM/DL (3.2-5.2); BILIRUBIN,TOTAL 0.8 MG/DL (0.2-1.0); CALCIUM LEVEL 10.9 MG/DL (8.8-10.2); CREATININE FOR GFR 1.84 MG/DL (0.70-1.30); GLOMERULAR FILTRATION RATE 37.2 (>35); POTASSIUM SERUM 3.7 MEQ/L (3.5-5.1); TOTAL PROTEIN 7.1 GM/DL (6.4-8.2)
== END ==
LOC: M SFHCPLAZ 10:08
PROVIDERS: ATTEND Family Medicine
DX: N18.3 Chronic kidney disease, stage 3 (moderate) (principal); D63.1 Anemia in chronic kidney disease; I13.10 Hypertensive heart and chronic kidney disease without heart failure, with stage 1 through stage 4 chronic kidney disease, or unspecified chronic kidney disease; Z23 Encounter for immunization
CPT/HCPCS: 36415; 80053; 85027; 90682; G0008; G0463

== ENCOUNTER → 2020-07-29 | Outpatient (CLI) | payer MEDICARE ==
[~2020-07-29] MED LIST changes: -ASPI81TA85 PO; +ASPI81TA86 PO; +CYCL-707 PO; -CYCL10TA PO
--- NOTE | 2020-07-29 14:41 | REP ---
INDICATION: ORTHOPNEA. COMPARISON: April 06, 2019 TECHNIQUE: Two views.. FINDINGS: The lungs are symmetrically aerated. There is linear fibrosis in the left perihilar region and right base. This is more prominent in the right base than on the prior study. There is some fissural thickening but no pleural angle blunting is appreciated. Pulmonary vasculature is in cephalized. The heart is enlarged. The aorta is somewhat tortuous. Heart size is unchanged. Cardiothoracic ratio is 60.1%. Score there are degenerative changes in the thoracic spine and shoulders. IMPRESSION: Moderate cardiac enlargement. Fissural thickening and fibrosis versus atelectasis right base. Pulmonary vascular cephalization. No definite infiltrate.. <Electronically signed by Nemesio Bowen > 07/29/20 [id number]
== END ==
LOC: M ADAMS 14:10
PROVIDERS: ATTEND Family Medicine
DX: R06.01 Orthopnea (principal); M51.34 Other intervertebral disc degeneration, thoracic region

== ENCOUNTER → 2020-07-29 | Outpatient (REF) | payer MEDICARE ==
[2020-07-29 17:13] LABS: BASO % 0.6 % (0.0-1.0); EOS # 0.1 10^3/uL (0.0-0.5); EOS % 1.5 % (0.0-3.0); HEMATOCRIT 35.3 % (42.0-52.0); LYMPH # 1.3 10^3/uL (1.5-5.0); LYMPH % 18.5 % (24.0-44.0); MEAN CORPUSCULAR HEMOGLOBIN 31.5 pg (27.0-33.0); MEAN CORPUSCULAR HGB CONC 31.2 g/dl (32.0-36.5); MEAN CORPUSCULAR VOLUME 101.1 fl (80.0-96.0); MONO # 0.6 10^3/uL (0.0-0.8); MONO % 8.6 % (0.0-5.0); NEUTROPHILS # 4.8 10^3/uL (1.5-8.5); NEUTROPHILS % 70.5 % (36.0-66.0); PLATELET COUNT, AUTOMATED 249 10^3/uL (150-450); RED BLOOD COUNT 3.49 10^6/uL (4.30-6.10); WHITE BLOOD COUNT 6.8 10^3/uL (4.0-10.0)
[2020-07-29 17:44] LABS: ALBUMIN 3.7 GM/DL (3.2-5.2); BILIRUBIN,TOTAL 0.5 MG/DL (0.2-1.0); CALCIUM LEVEL 9.1 MG/DL (8.8-10.2); CREATININE FOR GFR 1.52 MG/DL (0.70-1.30); GLOMERULAR FILTRATION RATE 46.3 (>35); POTASSIUM SERUM 4.1 MEQ/L (3.5-5.1); TOTAL PROTEIN 6.7 GM/DL (6.4-8.2)
== END ==
LOC: M SFHCADAM 13:58
PROVIDERS: ATTEND Family Medicine
DX: R06.01 Orthopnea (principal); R60.9 Edema, unspecified; M51.34 Other intervertebral disc degeneration, thoracic region
CPT/HCPCS: 71046; 80053; 83880; 85025; G0463

== ENCOUNTER → 2020-08-05 | Outpatient (REF) | payer MEDICARE ==
[2020-08-05 18:36] LABS: ALBUMIN 3.7 GM/DL (3.2-5.2); BILIRUBIN,TOTAL 0.5 MG/DL (0.2-1.0); CALCIUM LEVEL 9.4 MG/DL (8.8-10.2); CREATININE FOR GFR 1.75 MG/DL (0.70-1.30); GLOMERULAR FILTRATION RATE 39.4 (>35); POTASSIUM SERUM 3.8 MEQ/L (3.5-5.1); TOTAL PROTEIN 6.9 GM/DL (6.4-8.2)
== END ==
LOC: M SFHCADAM 12:37
PROVIDERS: ATTEND Family Medicine
DX: I50.9 Heart failure, unspecified (principal); Z23 Encounter for immunization
CPT/HCPCS: 80053; 90682; G0008; G0463

== ENCOUNTER → 2020-08-06 | Outpatient (CLI) | payer MEDICARE ==
--- NOTE | 2020-08-07 15:07 | ECHO ---
DATE OF PROCEDURE: 08/06/2020 Age: 89 Gender: Male Height: 170 cm Weight: 70 kg REFERRING PHYSICIAN: Brandi Luong DO INDICATION: Congestive heart failure. MEASUREMENTS: IVS 1.3 LV 5.5 LVPW 1.3 LA 4.4 Aorta 3.3 IVC 2.6 Left atrial volume index 61 FINDINGS: The study is of good technical quality. The patient is in irregular heart rhythm, most likely atrial fibrillation with frequent ventricular ectopy. Left ventricle is upper limits of normal size. Mild left ventricular hypertrophy is noted. There is global left ventricular hypokinesis, estimated left ventricular ejection fraction (LVEF) approximately 40 to 45%. Right ventricle appears of normal size and normal contractility. Both atria are severely enlarged. Aortic valve is tricuspid. It is heavily sclerotic and there is mild restriction of cusp mobility. Mitral, tricuspid, and pulmonic valves appear normal. No pericardial effusion is noted. Inferior vena cava is dilated, and there is only partial collapse with inspiration indicative of high central venous pressure (CVP). Aortic root is normal. Aortic arch and abdominal aorta were not well visualized. Doppler interrogation of the aortic valve reveals no insufficiency and mild stenosis with mean gradient 9 mmHg. There is approximately moderate mitral insufficiency with central MR jet likely secondary to LV dysfunction. There is mild tricuspid insufficiency. Calculated pulmonary artery pressure is at least in mid 50s corresponding to moderate if not moderately severe pulmonary hypertension. Pulmonic valve is functionally competent. Evaluation of diastolic function is inconclusive due to underlying irregular rhythm. CONCLUSIONS: 1. Study is of good technical quality. 2. Normal LV size with mild LVH and moderate global hypokinesis, estimated LV of approximately 40-45%. 3. Aortic sclerosis resulting in mild stenosis and no insufficiency. 4. Moderate mitral insufficiency likely secondary to LV dysfunction. 5. High central venous pressure and at least moderate pulmonary hypertension. 5. Severe bi-atrial enlargement. MTDD
== END ==
LOC: M CARPUL 10:12
PROVIDERS: ATTEND Family Medicine
DX: I50.9 Heart failure, unspecified (principal)

== ENCOUNTER → 2020-08-19 | Outpatient (REF) | payer MEDICARE ==
[2020-08-19 12:57] LABS: ALBUMIN 3.5 GM/DL (3.2-5.2); BILIRUBIN,TOTAL 0.7 MG/DL (0.2-1.0); CALCIUM LEVEL 9.7 MG/DL (8.8-10.2); CREATININE FOR GFR 1.74 MG/DL (0.70-1.30); GLOMERULAR FILTRATION RATE 39.6 (>35); POTASSIUM SERUM 3.7 MEQ/L (3.5-5.1); TOTAL PROTEIN 6.8 GM/DL (6.4-8.2)
== END ==
LOC: M SFHCCLAY 07:22
PROVIDERS: ATTEND Family Medicine
DX: I50.22 Chronic systolic (congestive) heart failure (principal)

== ENCOUNTER → 2020-09-10 | Outpatient (REF) | payer MEDICARE ==
[2020-09-10 12:43] LABS: CALCIUM LEVEL 9.2 MG/DL (8.8-10.2); CREATININE FOR GFR 1.96 MG/DL (0.70-1.30); GLOMERULAR FILTRATION RATE 34.5 (>35); POTASSIUM SERUM 3.8 MEQ/L (3.5-5.1)
== END ==
LOC: M SFHCCLAY 07:33
PROVIDERS: ATTEND Family Medicine
DX: I50.22 Chronic systolic (congestive) heart failure (principal); N18.32 Chronic kidney disease, stage 3b; I13.0 Hypertensive heart and chronic kidney disease with heart failure and stage 1 through stage 4 chronic kidney disease, or unspecified chronic kidney disease

== ENCOUNTER → 2020-09-21 | Outpatient (REF) | payer MEDICARE ==
[2020-09-21 12:19] LABS: CALCIUM LEVEL 10.1 MG/DL (8.8-10.2); CREATININE FOR GFR 1.83 MG/DL (0.70-1.30); GLOMERULAR FILTRATION RATE 37.4 (>35); POTASSIUM SERUM 3.8 MEQ/L (3.5-5.1)
== END ==
LOC: M SFHCCLAY 07:17
PROVIDERS: ATTEND Family Medicine
DX: I50.22 Chronic systolic (congestive) heart failure (principal)

== ENCOUNTER → 2020-11-05 | Outpatient (REF) | payer MEDICARE ==
[~2020-11-05] MED LIST changes: +GABA-282 PO; -GABA-843 PO
[2020-11-05 16:08] LABS: HEMATOCRIT 41.2 % (42.0-52.0); HEMOGLOBIN 12.6 g/dl (13.5-17.5); MEAN CORPUSCULAR HEMOGLOBIN 30.9 pg (27.0-33.0); MEAN CORPUSCULAR HGB CONC 30.6 g/dl (32.0-36.5); PLATELET COUNT, AUTOMATED 242 10^3/uL (150-450); RED BLOOD COUNT 4.08 10^6/uL (4.30-6.10); WHITE BLOOD COUNT 6.6 10^3/uL (4.0-10.0)
[2020-11-05 17:09] LABS: CALCIUM LEVEL 9.5 MG/DL (8.8-10.2); CREATININE FOR GFR 1.7 MG/DL (0.70-1.30); GLOMERULAR FILTRATION RATE 40.7 (>35)
== END ==
LOC: M SFHCCLAY 13:58
PROVIDERS: ATTEND Family Medicine
DX: I50.22 Chronic systolic (congestive) heart failure (principal); N18.32 Chronic kidney disease, stage 3b

== ENCOUNTER → 2020-11-18 | Outpatient (CLI) | payer MEDICARE ==
[~2020-11-18] MED LIST changes: +HYDR-3490 PO; -HYDR25TAB PO
--- NOTE | 2020-11-18 16:48 | REP ---
INDICATION: INCOMPLETE BLADDER EMPTYING, CHFVERY FULL BLADDER. COMPARISON: None. TECHNIQUE: Urinary tract sonography. FINDINGS: Patient had just emptied his bladder prior to scanning. Prostate gland dimensions by transabdominal imaging are 4.0 x 3.1 x 3.2 cm. Renal cortical echogenicity pattern is increased bilaterally consistent with chronic medical renal disease. There is mild cortical atrophy. A 1.1 cm cyst is seen in the midpole region of the left kidney. No mass is observed. . . The right kidney measures 9.5 x 4.3 x 3.6 cm. Left renal dimensions are 9.45 x 4.1 x 4.5 cm. IMPRESSION: Increased renal cortical echogenicity consistent with chronic medical renal disease. Mild cortical atrophy bilaterally. 1.1 cm cyst left kidney. Otherwise negative.. <Electronically signed by Nemesio Bowen > 11/18/20 [id number]
== END ==
LOC: M RAD 14:36
PROVIDERS: ATTEND Internal Medicine Cardiovascular Disease
DX: N40.1 Benign prostatic hyperplasia with lower urinary tract symptoms (principal); R39.14 Feeling of incomplete bladder emptying; N28.1 Cyst of kidney, acquired; N26.1 Atrophy of kidney (terminal)

== ENCOUNTER → 2020-11-19 | Outpatient (REF) | payer MEDICARE ==
[2020-11-19 13:22] LABS: CALCIUM LEVEL 9.9 MG/DL (8.8-10.2); CREATININE FOR GFR 2.06 MG/DL (0.70-1.30); GLOMERULAR FILTRATION RATE 32.6 (>35); POTASSIUM SERUM 3.2 MEQ/L (3.5-5.1)
== END ==
LOC: M LABDRAWC 11:24
PROVIDERS: ATTEND Internal Medicine Cardiovascular Disease
DX: I50.22 Chronic systolic (congestive) heart failure (principal)

== ENCOUNTER → 2020-12-30 | Outpatient (REF) | payer MEDICARE ==
[2020-12-30 14:06] LABS: APPEARANCE, URINE CLEAR (CLEAR); BACTERIA, URINE AUTO NEGATIVE (NEGATIVE); BILIRUBIN, URINE AUTO NEGATIVE (NEGATIVE); BLOOD, URINE BLOOD NEGATIVE (NEGATIVE); COLOR, URINE YELLOW (YELLOW); GLUCOSE, URINE (UA) AUTO NEGATIVE (NEGATIVE); KETONE, URINE AUTO NEGATIVE (NEGATIVE); LEUKOCYTE ESTERASE, URINE AUTO NEGATIVE (NEGATIVE); MUCUS, URINE SMALL (NEGATIVE); NITRITE, URINE AUTO NEGATIVE (NEGATIVE); PROTEIN, URINE AUTO NEGATIVE (NEGATIVE); RBC, URINE AUTO 0 /HPF (0-3); SPECIFIC GRAVITY URINE AUTO 1.009 (1.002-1.035); SQUAMOUS EPITHELIAL CELL UR AU 0 /HPF (0-6); UROBILINOGEN, URINE AUTO 0.2 mg/dL (0.0-2.0); WBC, URINE AUTO 0 /HPF (0-3)
== END ==
LOC: M SMT 13:41
PROVIDERS: ATTEND Nurse Practitioner Family
DX: N40.1 Benign prostatic hyperplasia with lower urinary tract symptoms (principal)
CPT/HCPCS: 51798; 81001; 87086; G0463